=== PATIENT | male | born 1965 | race Caucasian/White ===

== ENCOUNTER 2019-11-11 14:56 | Inpatient (IN) | payer MEDICARE, OTHER ==
--- NOTE | 2019-11-11 15:15 | PDOC ---
Rapid Medical Evaluation Medical Evaluation: Allergies Allergy/AdvReac Type Severity Reaction Status Date / Time No Known Allergies Allergy Unverified 11/05/12 16:24 11/11/19 15:08 I have performed a brief in-person evaluation of this patient. The patient presents with a chief complaint of: L thigh pain s/p fall yesterday when leg gave out per pt. H/o ALS, mostly wheelchair bound but states he can bear weight minimally and was standing up when he fell yesterday. Able to bear weight on L side today. Denies any other injuries. Pertinent physical exam findings:Currently sitting in wheelchair, in NAD I have ordered the following:nothing The patient will proceed to the ED for further evaluation. Discharge Disposition - Diagnosis Thigh injury Qualifiers: Encounter type: initial encounter Laterality: left Qualified Code(s): S79.922A - Unspecified injury of left thigh, initial encounter - Referrals - Patient Instructions - Post Discharge Activity
--- NOTE | 2019-11-11 19:40 | PDOC ---
Documentation entered by Jovanni Brown SCRIBE, acting as scribe for Charito Hidalgo DO. Charito Hidalgo DO: This documentation has been prepared by the Kevin edge Nirvannie, SCRIBE, under my direction and personally reviewed by me in its entirety. I confirm that the documentation accurately reflects all work, treatment, procedures, and medical decision making performed by me. Attending Attestation - Resident Resident Name: DenisRhett - ED Attending Attestation I have performed the following: I have examined & evaluated the patient, The case was reviewed & discussed with the resident, I agree w/resident's findings & plan, Exceptions are as noted - HPI HPI: 11/11/19 19:43 The patient is a 54 year old male, with a significant past medical history of ALS (wheelchair bound since 07/13) and depression, who presents to the emergency department s/p fall with left thigh pain. As per patient, he fell yesterday while being transported from his wheelchair to the car at which time he fell between. Patient lived with his 80 year old mother in a 3 floor walk up and 2 months ago moved in with his sister where there are multiple stairs to walk up. He notes he has been only capable to get in and out of the residences being carried and with significant assistance. Patient notes calling his social service coordinator who has been attempting to get him into the [facility] ([place], [place]) with difficulty secondary to lack of beds. He states his social service coordinator advised him to report to the ED for admission and placement. He denies any recent fevers, chills, headache or dizziness. He denies any recent nausea, vomiting, diarrhea or constipation. He denies any recent chest pain or shortness of breath. He denies any recent dysuria, frequency, urgency or hematuria. Allergies: NKDA Clinical Documentation Consultant: Anju Pierce: [phone] - Physicial Exam PE: 11/11/19 20:43 Constitutional: Awake, alert, oriented. No acute distress. Head: Normocephalic. Atraumatic Eyes: PERRL. EOMI. Conjunctivae are not pale. ENT: Mucous membranes are moist and intact. Posterior pharynx without exudates or erythema. Uvula midline. Neck: Supple. Full ROM. No lymphadenopathy. Cardiovascular: Regular rate. Regular rhythm. S1, S2 regular. Distal pulses are 2+ and symmetric. Pulmonary/Chest: No evidence of respiratory distress. Clear to auscultation bilaterally No wheezing, rales or rhonchi. Abdominal: Soft and non-distended. There is no tenderness. No rebound, guarding or rigidity. No organomegaly. No palpable masses. Good bowel sounds. Back: No CVA tenderness. Musculoskeletal: +Atrophy to the LLE, no muscle tone to the LLE. +Left femur tenderness. RLE normal ROM. Skin: Skin is warm and dry. No petechiae. No purpura. Neurological: +At baseline. Alert and oriented to person, place, and time. Cranial nerves II-XII are grossly intact. Normal speech. Psychiatric: Good eye contact. Normal interaction, affect and behavior. - Medical Decision Making 11/11/19 19:35 I, Dr. Charito Hidalgo, DO, attest that this document has been prepared under my direction and personally reviewed by me in its entirety. I further attest, that it accurately reflects all work, treatment, procedures and medical decision -making performed by me. a/p:54yo male with ALS, wheelchair, cane, walker and LLE atrophy and muscle loss and fall yesterday -lived in a 3 story walk up, then moved to his sisters house where she has stairs to get into the house -fall yesterday and hit his L thigh -pt states he has been crawling to get into the house and up the stairs or friends have had to carry him -trying to get into [facility] but no beds available so his social service coordinator from [facility] told him to come to the ER and get admitted and placed pending bed availability at the [facility] -will xray leg, percocet for pain -will discuss with KASSY for inability to ambulate, unsafe discharge, placement 11/11/19 20:04 case discussed with KASSY who accepts pt to service Discharge - Discharge Information Problems reviewed: Yes Clinical Impression/Diagnosis: Unable to ambulate Thigh injury Qualifiers: Encounter type: initial encounter Laterality: left Qualified Code(s): S79.922A - Unspecified injury of left thigh, initial encounter Condition: Stable - Admission Yes - Follow up/Referral - Patient Discharge Instructions - Post Discharge Activity Heart Score/ECG Review - ECG Intrepretation Comment:: 11/11/19 20:45 sinus at 60, nl axis, nl interval, no acute st/t wave findings
--- NOTE | 2019-11-11 20:03 | PDOC ---
History of Present Illness - General Chief Complaint: Injury Stated Complaint: FALL Time Seen by Provider: 11/11/19 15:15 History Source: Patient, Family Exam Limitations: No Limitations - History of Present Illness Initial Comments: 11/11/19 19:57 PCP: None Neuro: [facility] ([phone]) ALS Staff Development Coordinator: Anju Pierce ([phone]) HPI: 54yo M with PMH ALS, substance abuse on methadone, presenting s/p mechanical fall when exiting his car, no head trauma, no LOC, mild MSK pain, presenting per request of ALS Provider who told him to get admitted for placement because he is unable to return to his 3rd floor walkup apartment. Patient has been requiring friends / family with a system of crutches to get himself up to his apartment. He felt unsafe doing this and went to his sister's apartment for awhile but is unable to traverse her stairs / driveway in the current ice and snow. After his fall yesterday, they attempted to place him at [facility] but did not have a bed and she was told to present to the ED for admission and placement. All: NKDA Meds: per chart PMH: ALS PSH: Denies Past History - Travel Traveled outside of the country in the last 30 days: No Close contact w/someone who was outside of country & ill: No - Past Medical History Allergies/Adverse Reactions: Allergies Allergy/AdvReac Type Severity Reaction Status Date / Time No Known Allergies Allergy Verified 11/11/19 15:12 Home Medications: Ambulatory Orders Citalopram Hydrobromide [Citalopram HBr] 20 mg PO DAILY 11/11/19 Methadone [Dolophine -] 60 mg PO DAILY 11/11/19 Riluzole 50 mg PO DAILY 11/11/19 COPD: Yes Other medical history: ALS - METHADONE PROGRAM - Immunization History Immunization Up to Date: Yes - Psycho Social/Smoking Cessation Hx Smoking History: Current every day smoker Number of Cigarettes Smoked Daily: 20 Information on smoking cessation initiated: No Review of Systems - Review of Systems Able to Perform ROS?: Yes Is the patient limited Haitian proficient: Yes Constitutional: No: Chills, Fever, Weakness HEENTM: No: Recent change in vision, Nose Congestion, Throat Pain, Mouth Pain Respiratory: No: Cough, Shortness of Breath, Wheezing Cardiac (ROS): No: Chest Pain, Edema, Irregular Heart Rate, Palpitations, Chest Tightness ABD/GI: No: Constipated, Diarrhea, Nausea, Vomiting : No: Burning, Dysuria, Discharge, Frequency Musculoskeletal: No: Back Pain, Joint Pain Integumentary: No: Bruising, Pruritus, Rash Neurological: No: Headache, Numbness, Tingling, Weakness Hematologic/Lymphatic: No: Anemia, Blood Clots, Easy Bleeding All Other Systems: Reviewed and Negative *Physical Exam - Vital Signs Last Vital Signs Temp Pulse Resp BP Pulse Ox 97.8 F 85 18 147/78 97 11/11/19 15:12 11/11/19 15:12 11/11/19 15:12 11/11/19 15:12 11/11/19 15:12 - Physical Exam 11/11/19 20:04 AFVSS WDWN man, appears stated age, no acute distress MMM, EOMI, NCAT RRR, nl s1s2, no murmurs CTABL, normal WOB, no wheezes / rales / rhonchi Soft, nontender, nondistended WWP, MSK wasting b/l LE, normal ROM, weakness throughout more pronounced in LE CN grossly intact 2+ radial pulses Medical Decision Making - Medical Decision Making 11/11/19 20:30 54yo M with PMH ALS, substance abuse on methadone, presenting with progressive ALS associated weakness and muscle atrophy presenting for placement. LLE muscle atrophy, s/p mechanical fall yesterday while transferring between car and wheelchair, newly non-ambulatory. - EKbpm, NSR, normal axis, normal intervals, no ischemic changes, normal EKG - Social admit for placement in setting of unsafe disposition of effectively non -ambulatory man to 3 floor walk-up. Dispo: Med/Surg Discharge - Discharge Information Problems reviewed: Yes Clinical Impression/Diagnosis: Unable to ambulate Thigh injury Qualifiers: Encounter type: initial encounter Laterality: left Qualified Code(s): S79.922A - Unspecified injury of left thigh, initial encounter Condition: Stable - Admission Yes - Follow up/Referral - Patient Discharge Instructions - Post Discharge Activity
--- NOTE | 2019-11-11 20:08 | PN ---
Teaching Attending Note Name of Resident: Jagruti Mcdaniels ATTENDING PHYSICIAN STATEMENT I saw and evaluated the patient. I reviewed the resident's note and discussed the case with the resident. I agree with the resident's findings and plan as documented. SUBJECTIVE: Patient is a 54 year old man with a PMH of ALS (wheelchair bound since 07/13), Tobacco use and Depression, who presents to the ER after a fall with left thigh pain. Says he fell yesterday while being transported from his wheelchair to the car. Patient lived with his 80 year old mother in a 3 floor walk up and 2 months ago moved in with his sister where there are multiple stairs to walk up. He notes he has been only capable to get in and out of the residences being carried and with significant assistance. Patient notes calling his social services technician who has been attempting to get him into the [facility] ([place], [place]) with difficulty secondary to lack of beds. He states his social services technician advised him to report to the ER for admission and placement. Denies any recent fevers, chills, headache, dizziness, nausea, vomiting, diarrhea, constipation, chest pain, shortness of breath, dysuria, frequency, urgency or hematuria. No recent travel or sick contacts. Denies alcohol, tobacco or illicit drug use. OBJECTIVE: Alert Vital Signs Period Temp Pulse Resp BP Sys/Cruz Pulse Ox Last 24 Hr 97.8 F 85 18 147/78 97 HEENT: No Jaundice, eye redness or discharge, PERRLA, EOMI. Normocephalic, atraumatic. External ears are normal and hearing is grossly intact. No nasal discharge. Neck: Supple, nontender. No palpable adenopathy or thyromegaly. No JVD Chest: Good effort. Clear to auscultation and percussion. Heart: Regular. No S3, rub or murmur Abdomen: Not distended, soft, nontender and no HSM. No rebound or guarding. Normal bowel sounds. Ext: Peripheral pulses intact. No leg edema. Left thigh tenderness. Skin: Warm and dry. No petechiae, rash or ecchymosis. Neuro: Alert. Oriented x3. CN 2-12 grossly intact. Sensation grossly intact in all four extremities; left hemiparesis. Psych: Appropriate mood and affect. Good insight. No suicidal or homicidal ideation. Home Medications Medication Instructions Recorded Citalopram Hydrobromide 20 mg PO DAILY 11/11/19 [Citalopram HBr] Methadone [Dolophine -] 60 mg PO DAILY 11/11/19 Riluzole 50 mg PO DAILY 11/11/19 Laboratory Results - last 24 hr 11/12/19 11/12/19 11/12/19 00:55 04:06 04:06 WBC 8.8 RBC 4.64 Hgb 13.9 Hct 39.8 MCV 85.8 MCH 30.0 MCHC 35.0 RDW 13.4 Plt Count 232 MPV 8.2 Absolute Neuts (auto) 4.9 Neutrophils % 56.2 Lymphocytes % 29.6 Monocytes % 8.8 Eosinophils % 4.7 H Basophils % 0.7 Nucleated RBC % 0 Sodium 141 Potassium 4.8 Chloride 104 Carbon Dioxide 33 H Anion Gap 3 L BUN 9.3 Creatinine 0.6 Est GFR (CKD-EPI)AfAm 132.11 Est GFR (CKD-EPI)NonAf 113.99 Random Glucose 101 Calcium 9.0 Total Bilirubin 0.3 AST 25 ALT 36 Alkaline Phosphatase 77 Total Protein 6.7 Albumin 3.7 Urine Color [place] Urine Appearance Clear Urine pH 5.5 Ur Specific [place] 1.011 Urine Protein Negative Urine Glucose (UA) Negative Urine Ketones Negative Urine Blood Negative Urine Nitrite Negative Urine Bilirubin Negative Urine Urobilinogen 0.2 Ur Leukocyte Esterase Negative ASSESSMENT AND PLAN: 1. ALS/Inability to ambulate - No fracture on left femur xray. Debility likely related to ALS progression. EKG shows NSR with no significant ST-T wave changes. Will consult residential worker for placement, PT and Neurology. Will continue comprehensive care for all of patients comorbid conditions. 2. Tobacco Use Counseled on risks associated with tobacco use. We will provide patient all the necessary assistance to facilitate smoking cessation and prescribe Nicotine patch. 3. DVT prophylaxis - Lovenox 40 mg SQ q 24 hours. 4. Advance directives - Full code
--- NOTE | 2019-11-11 20:31 | HP ---
CHIEF COMPLAINT: worsening weakness 2/2 ALS resulting in fall PCP: [facility] HISTORY OF PRESENT ILLNESS: 54 y/o male with PMH of ALS (wheelchair bound since 07/13) and depression presenting to ED s/p fall with mild left thigh discomfort on palpation. As per patient and partner, he fell yesterday while being transported from his wheelchair to the car as his legs gave out. He denies any LOC, chest pain,SOB or palpitatins prior to the fall. Patient lived with his 80 year old mother in a 3 floor walk up and 2 months ago moved in with his sister where there are multiple stairs to walk up. He notes he has been only capable to get in and out of the residences by being carried and with significant assistance. Patient report to being in contact with his social media marketing analyst consistently in hopes that he receives a bed in the [facility] (a home for pts with ALS). He states his social media marketing analyst advised him to report to the ED for admission and placement. He further denies any recent fevers, chills, headache or dizziness. He denies any recent nausea, vomiting, changes in urination or bowel movement Site Head: Anju Pierce: [phone] ER course was notable for: (1) ekg NSR no st changes (2) xray no evidence of fracture (3)cbc and cmp are unremarkable, UA negative Recent Travel:none PAST MEDICAL HISTORY: as above PAST SURGICAL HISTORY: none Family HISTORY: non contributory Social History: Smoking: active smoker 1PPD Alcohol:denies Drugs: denies Allergies No Known Allergies Allergy (Verified 11/11/19 15:12) HOME MEDICATIONS: Home Medications Medication Instructions Recorded Citalopram Hydrobromide 20 mg PO DAILY 11/11/19 [Citalopram HBr] Methadone [Dolophine -] 60 mg PO DAILY 11/11/19 Riluzole 50 mg PO DAILY 11/11/19 REVIEW OF SYSTEMS CONSTITUTIONAL: Absent: fever, chills, diaphoresis, generalized weakness, malaise, loss of appetite, weight change HEENT: Absent: rhinorrhea, nasal congestion, throat pain, throat swelling, difficulty swallowing, mouth swelling, ear pain, eye pain, visual changes CARDIOVASCULAR: Absent: chest pain, syncope, palpitations, irregular heart rate, lightheadedness , peripheral edema RESPIRATORY: Absent: cough, shortness of breath, dyspnea with exertion, orthopnea, wheezing, stridor, hemoptysis GASTROINTESTINAL: Absent: abdominal pain, abdominal distension, nausea, vomiting, diarrhea, constipation, melena, hematochezia GENITOURINARY: Absent: dysuria, frequency, urgency, hesitancy, hematuria, flank pain, genital pain MUSCULOSKELETAL: Absent: myalgia, arthralgia, joint swelling, back pain, neck pain SKIN: Absent: rash, itching, pallor HEMATOLOGIC/IMMUNOLOGIC: Absent: easy bleeding, easy bruising, lymphadenopathy, frequent infections ENDOCRINE: Absent: unexplained weight gain, unexplained weight loss, heat intolerance, cold intolerance NEUROLOGIC: focal weakness Absent: headache, paresthesias, dizziness, unsteady gait, seizure, mental status changes, bladder or bowel incontinence PSYCHIATRIC: Absent: anxiety, depression, suicidal or homicidal ideation, hallucinations. PHYSICAL EXAMINATION Vital Signs - 24 hr 11/11/19 15:12 Temperature 97.8 F Pulse Rate 85 Respiratory 18 Rate Blood Pressure 147/78 O2 Sat by Pulse 97 Oximetry (%) GENERAL: Awake, alert, and fully oriented, in no acute distress. HEAD: Normal with no signs of trauma. EYES: Pupils equal, round and reactive to light, extraocular movements intact, sclera anicteric, conjunctiva clear. No lid lag. EARS, NOSE, THROAT: oropharynx clear without exudates. Moist mucous membranes. NECK: Normal range of motion, supple without lymphadenopathy, JVD, or masses. LUNGS: Breath sounds equal, clear to auscultation bilaterally. No wheezes, and no crackles. No accessory muscle use. HEART: Regular rate and rhythm, normal S1 and S2 without murmur, rub or gallop. ABDOMEN: Soft, nontender, not distended, normoactive bowel sounds, no guarding, no rebound, no masses. No hepatomegaly or splenomegaly. MUSCULOSKELETAL: Normal range of motion at all joints. No bony deformities with tenderness over the left femur. No CVA tenderness. UPPER EXTREMITIES: 2+ pulses, warm, well-perfused. No cyanosis. No clubbing. No peripheral edema. LOWER EXTREMITIES: 2+ pulses, warm, well-perfused. No calf tenderness. No peripheral edema. NEUROLOGICAL: Cranial nerves II-XII intact without fasiculations. Sensation intact globally. No dysmetria or dysdiadochokinesia. Normal speech. Muscle strength 5/5 on the right side with 3/5 in the left UE and 1-2/5 in the left LE. PSYCHIATRIC: Cooperative. Good eye contact. Appropriate mood and affect. SKIN: Warm, dry, normal turgor, no rashes or lesions noted, normal capillary refill. ASSESSMENT/PLAN: 54 y/o male with PMH of ALS (wheelchair bound since 07/13) and depression presenting to ED s/p fall with mild left thigh pain on palpation. admitted for unsafe discharge and need for placement and r/o fracture from fall. Fall with thigh pain 2/2 worsening weakness from progressing ALS /inability to ambulate f/u Xray of the femur results pain control for thigh pain pt is requiring signicant assistance for ambulation. fall precautions PT ordered Day team- please get in touch with social work in terms of finding placement ALS cont riluzole cont methadone 60mg for pain control ( pt gets it at [facility]) Depression cont citalopram DVT lovenox daily Dispo med-surge Visit type - Emergency Visit Emergency Visit: Yes ED Registration Date: 11/11/19 Care time: The patient presented to the Emergency Department on the above date and was hospitalized for further evaluation of their emergent condition. - New Patient This patient is new to me today: No - Critical Care Critical Care patient: No ATTENDING PHYSICIAN STATEMENT I saw and evaluated the patient. I reviewed the resident's note and discussed the case with the resident. I agree with the resident's findings and plan as documented. SUBJECTIVE: OBJECTIVE: ASSESSMENT AND PLAN:
[2019-11-12 01:45] LABS: PH,URINE 5.5 (5.0-8.0); URINE APPEARANCE CLEAR; URINE BILIRUBIN NEGATIVE (NEGATIVE); URINE COLOR ORANGE; URINE GLUCOSE (UA) NEGATIVE (NEGATIVE); URINE KETONE NEGATIVE (NEGATIVE); URINE LEUK ESTERASE NEGATIVE (NEGATIVE); URINE NITRITE NEGATIVE (NEGATIVE); URINE PROTEIN NEGATIVE (NEGATIVE); URINE UROBILINOGEN 0.2 mg/dL (0.2-1.0)
[2019-11-12 04:43] LABS: BASO % 0.7 % (0-2.0); EOS % 4.7 % (0-4.5); HEMATOCRIT 39.8 % (35.4-49); HEMOGLOBIN 13.9 GM/dL (11.7-16.9); LYMPH % 29.6 % (8-40); MEAN CELL VOLUME 85.8 fl (80-96); MEAN PLT VOLUME 8.2 fl (7.5-11.1); MONO % 8.8 % (3.8-10.2); NEUT % 56.2 % (42.8-82.8); PLATELET COUNT 232 K/MM3 (134-434); RBC 4.64 M/mm3 (4.00-5.60); RDW 13.4 % (11.9-15.9); WHITE BLOOD COUNT 8.8 K/mm3 (4.0-10.0)
[2019-11-12 05:00] LABS: ALBUMIN 3.7 g/dl (3.4-5.0); BILIRUBIN,TOTAL 0.3 mg/dL (0.2-1); BLOOD UREA NITROGEN 9.3 mg/dL (7-18); CREATININE 0.6 mg/dL (0.55-1.3); POTASSIUM 4.8 mmol/L (3.5-5.1); TOT PROT 6.7 g/dl (6.4-8.2)
[2019-11-12 07:42] LABS: MAGNESIUM 2.1 mg/dL (1.8-2.4); PHOSPHOROUS 3.7 mg/dL (2.5-4.9)
[2019-11-12] MEDS: ENOXAPARIN NA (PORCINE) 40 MG/0.4 ML DISP.SYRIN SQ SCH (09:08)
[2019-11-12] MEDS ORDERED: METHADONE HCL 40 MG DISPERSABLE TABLET PO SCH (11:45)
[2019-11-12] MEDS ORDERED: METHADONE HCL 40 MG DISPERSABLE TABLET ONE (11:48)
[2019-11-12] MEDS ORDERED: METHADONE HCL 10 MG TABLET ONE (11:48)
[2019-11-12] MEDS: METHADONE 40 MG, METHADONE 20 MG PO SCH (11:52)
--- NOTE | 2019-11-12 11:57 | EKG ---
Test Reason : Blood Pressure : / mmHG Vent. Rate : 060 BPM Atrial Rate : 060 BPM P-R Int : 140 ms QRS Dur : 088 ms QT Int : 410 ms P-R-T Axes : 067 029 036 degrees QTc Int : 410 ms NORMAL SINUS RHYTHM NORMAL ECG NO PREVIOUS ECGS AVAILABLE Confirmed by ALBINA WARNER MD ([id number]) on 11/12/2019 11:57:36 AM Referred By: Confirmed By:ALBINA WARNER MD
--- NOTE | 2019-11-12 13:45 | PN ---
Physical Exam: SUBJECTIVE: Patient seen and examined. Patient states he was using Heroin until three months ago, denies any IV use. He states he stopped using heroin and is now only on Methadone. He denies other drug use. He was able to walk with a cane up until last year. His ALS is progressing. He would like to go to [facility] specifically because they have staff trained for ALS care. OBJECTIVE: Vital Signs Period Temp Pulse Resp BP Sys/Cruz Pulse Ox Last 24 Hr 97.8 F-98.2 F 72-85 16-19 113-147/65-88 96-97 GENERAL: The patient is awake, alert, and fully oriented, in no acute distress. HEAD: Normal with no signs of trauma. EYES: EOMI, PERRL ENT: Moist mucous membranes NECK: Trachea midline, full range of motion, supple. LUNGS: Breath sounds equal, clear to auscultation bilaterally, no wheezes, no crackles, no accessory muscle use. HEART: RRR, S1 S2 normal, no murmur noted ABDOMEN: Soft, nontender, nondistended, normoactive bowel sounds, no guarding EXTREMITIES: 2+ pulses, warm, well-perfused, no edema. NEUROLOGICAL: Normal speech. Sensation intact throughout. RUE muscle strength 5/ 5, LUE muscle strength 4/5. Patient able to move right hip and knee with good ROM. ROM of left hip decreased as patient is unable to move it, unable to move LLE at level of knee. PSYCH: appropriate mood and affect SKIN: Warm, dry Laboratory Results - last 24 hr 11/12/19 11/12/19 11/12/19 00:55 04:06 04:06 WBC 8.8 RBC 4.64 Hgb 13.9 Hct 39.8 MCV 85.8 MCH 30.0 MCHC 35.0 RDW 13.4 Plt Count 232 MPV 8.2 Absolute Neuts (auto) 4.9 Neutrophils % 56.2 Lymphocytes % 29.6 Monocytes % 8.8 Eosinophils % 4.7 H Basophils % 0.7 Nucleated RBC % 0 Sodium 141 Potassium 4.8 Chloride 104 Carbon Dioxide 33 H Anion Gap 3 L BUN 9.3 Creatinine 0.6 Est GFR (CKD-EPI)AfAm 132.11 Est GFR (CKD-EPI)NonAf 113.99 Random Glucose 101 Calcium 9.0 Phosphorus Magnesium Total Bilirubin 0.3 AST 25 ALT 36 Alkaline Phosphatase 77 Total Protein 6.7 Albumin 3.7 Vitamin B12 Serum Folate Urine Color [place] Urine Appearance Clear Urine pH 5.5 Ur Specific [place] 1.011 Urine Protein Negative Urine Glucose (UA) Negative Urine Ketones Negative Urine Blood Negative Urine Nitrite Negative Urine Bilirubin Negative Urine Urobilinogen 0.2 Ur Leukocyte Esterase Negative 11/12/19 11/12/19 06:20 06:20 WBC RBC Hgb Hct MCV MCH MCHC RDW Plt Count MPV Absolute Neuts (auto) Neutrophils % Lymphocytes % Monocytes % Eosinophils % Basophils % Nucleated RBC % Sodium Potassium Chloride Carbon Dioxide Anion Gap BUN Creatinine Est GFR (CKD-EPI)AfAm Est GFR (CKD-EPI)NonAf Random Glucose Calcium Phosphorus 3.7 Magnesium 2.1 Total Bilirubin AST ALT Alkaline Phosphatase Total Protein Albumin Vitamin B12 999 H Serum Folate 14 Urine Color Urine Appearance Urine pH Ur Specific [place] Urine Protein Urine Glucose (UA) Urine Ketones Urine Blood Urine Nitrite Urine Bilirubin Urine Urobilinogen Ur Leukocyte Esterase Active Medications Generic Name Dose Route Start Last Admin Trade Name Freq PRN Reason Stop Dose Admin Citalopram Hydrobromide 20 mg 11/13/19 10:00 Celexa - PO DAILY [facility] Enoxaparin Sodium 40 mg 11/12/19 10:00 11/12/19 09:08 Lovenox - SQ 40 mg DAILY [facility] Administration Methadone HCl 40 mg/ Methadone 60 mg 11/12/19 11:45 11/12/19 11:52 HCl 20 mg PO 60 mg DAILY@0600 [facility] Administration ASSESSMENT/PLAN: 54 y/o/m with PMH of ALS (wheelchair bound since 07/13) and depression presenting to ED s/p fall with mild left thigh pain on palpation. Patient admitted for unsafe discharge and need for placement. #Left thigh pain 2/2 mechanical fall 2/2 worsening weakness from progressive ALS - Femur Xray - no sign of fracture or subluxation and no sign of blastic or lytic changes - pain control as needed, can give Tylenol - PT eval - Patient will need placement on discharge as he is unable to ambulate on his own - fall precautions - patient requesting placement in [place] home #ALS - Patient has not picked up his Riluzole medication since spring of this year #Depression - Continue Citalopram #Prophylaxis - Lovenox #FEN - regular diet - monitor and replete lytes as needed #Disposition - admitted to med surg floors - will need placement on discharge Visit type - Emergency Visit Emergency Visit: Yes ED Registration Date: 11/11/19 Care time: The patient presented to the Emergency Department on the above date and was hospitalized for further evaluation of their emergent condition. - New Patient This patient is new to me today: No - Critical Care Critical Care patient: No ATTENDING PHYSICIAN STATEMENT I saw and evaluated the patient. I reviewed the resident's note and discussed the case with the resident. I agree with the resident's findings and plan as documented. SUBJECTIVE: OBJECTIVE: ASSESSMENT AND PLAN:
--- NOTE | 2019-11-12 17:09 | PN ---
Teaching Attending Note Name of Resident: Winston Sofia ATTENDING PHYSICIAN STATEMENT I saw and evaluated the patient. I reviewed the resident's note and discussed the case with the resident. I agree with the resident's findings and plan as documented. SUBJECTIVE: Feels well. Reports worsening LE weakness. No bladder/bowel dysfunction. No CP/palps/dyspnea. No fever/chills. OBJECTIVE: Afebrile, Hemodynamically Stable. Last Vital Signs Temp Pulse Resp BP Pulse Ox 98.3 F 76 15 125/76 97 11/12/19 16:59 11/12/19 16:59 11/12/19 16:59 11/12/19 16:59 11/12/19 07:23 HEENT - Atraumatic, normocephalic. Heart - S1, S2, RRR Lungs - clear to auscultation Abdomen - Soft, non-tender. Bowel Sounds normal. Extremities - mild edema, no calf tenderness. Neuro - AAO x 3. Lower Extremity weakness L>R. Laboratory Results - last 24 hr 11/12/19 11/12/19 11/12/19 00:55 04:06 04:06 WBC 8.8 RBC 4.64 Hgb 13.9 Hct 39.8 MCV 85.8 MCH 30.0 MCHC 35.0 RDW 13.4 Plt Count 232 MPV 8.2 Absolute Neuts (auto) 4.9 Neutrophils % 56.2 Lymphocytes % 29.6 Monocytes % 8.8 Eosinophils % 4.7 H Basophils % 0.7 Nucleated RBC % 0 Sodium 141 Potassium 4.8 Chloride 104 Carbon Dioxide 33 H Anion Gap 3 L BUN 9.3 Creatinine 0.6 Est GFR (CKD-EPI)AfAm 132.11 Est GFR (CKD-EPI)NonAf 113.99 Random Glucose 101 Calcium 9.0 Phosphorus Magnesium Total Bilirubin 0.3 AST 25 ALT 36 Alkaline Phosphatase 77 Total Protein 6.7 Albumin 3.7 Vitamin B12 Serum Folate Urine Color [place] Urine Appearance Clear Urine pH 5.5 Ur Specific [place] 1.011 Urine Protein Negative Urine Glucose (UA) Negative Urine Ketones Negative Urine Blood Negative Urine Nitrite Negative Urine Bilirubin Negative Urine Urobilinogen 0.2 Ur Leukocyte Esterase Negative 11/12/19 11/12/19 06:20 06:20 WBC RBC Hgb Hct MCV MCH MCHC RDW Plt Count MPV Absolute Neuts (auto) Neutrophils % Lymphocytes % Monocytes % Eosinophils % Basophils % Nucleated RBC % Sodium Potassium Chloride Carbon Dioxide Anion Gap BUN Creatinine Est GFR (CKD-EPI)AfAm Est GFR (CKD-EPI)NonAf Random Glucose Calcium Phosphorus 3.7 Magnesium 2.1 Total Bilirubin AST ALT Alkaline Phosphatase Total Protein Albumin Vitamin B12 999 H Serum Folate 14 Urine Color Urine Appearance Urine pH Ur Specific [place] Urine Protein Urine Glucose (UA) Urine Ketones Urine Blood Urine Nitrite Urine Bilirubin Urine Urobilinogen Ur Leukocyte Esterase Current Medications Generic Name Dose Route Start Last Admin Trade Name Rashmi PRN Reason Stop Dose Admin Citalopram Hydrobromide 20 mg 11/13/19 10:00 Celexa - PO DAILY [facility] Enoxaparin Sodium 40 mg 11/12/19 10:00 11/12/19 09:08 Lovenox - SQ 40 mg DAILY [facility] Administration Methadone HCl 40 mg/ Methadone 60 mg 11/12/19 11:45 11/12/19 11:52 HCl 20 mg PO 60 mg DAILY@0600 [facility] Administration Home Medications Medication Instructions Recorded Citalopram Hydrobromide 20 mg PO DAILY 11/11/19 [Citalopram HBr] Methadone [Dolophine -] 60 mg PO DAILY 11/11/19 ASSESSMENT AND PLAN: 54 year old male with ALS (wheelchair bound since 07/13), 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 1. Progressive ALS/Ambulatory Dysfunction/Functional Paraplegia L Femur Xray negative. PT/Social Work for placement Will consult Palliative Care 2. Ex-Substance Abuse - on Methadone. 3. Smoker. counseled, offered nicotine patch. 4. Depression - continue Citalopram. DVT Prophylaxis - Lovenox SQ FULL CODE
[2019-11-12 18:46] VITALS: BMI 24.6
[2019-11-12] MEDS ORDERED: ACETAMINOPHEN 500 MG TABLET (FP) PO ONE (19:04)
[2019-11-12] MEDS ORDERED: FLU VACCINE QUAD 60 MCG/0.5 ML (MDV 19-20) IM ONE (19:15)
[2019-11-13] MEDS ORDERED: METHADONE HCL 40 MG DISPERSABLE TABLET ONE (05:50)
[2019-11-13] MEDS ORDERED: METHADONE HCL 10 MG TABLET ONE (05:50)
[2019-11-13] MEDS: METHADONE 40 MG, METHADONE 20 MG PO SCH (05:56)
[2019-11-13 08:46] LABS: BLOOD UREA NITROGEN 8.6 mg/dL (7-18); CALCIUM 9.1 mg/dL (8.5-10.1); CREATININE 0.5 mg/dL (0.55-1.3); POTASSIUM 4.1 mmol/L (3.5-5.1)
[2019-11-13] MEDS: CITALOPRAM HYDROBROMIDE 20 MG TABLET (FP) PO SCH (10:30)
[2019-11-13] MEDS: ENOXAPARIN NA (PORCINE) 40 MG/0.4 ML DISP.SYRIN SQ SCH (10:30)
[2019-11-13] MEDS ORDERED: FLU VACCINE QUAD 60 MCG/0.5 ML (MDV 19-20) IM ONE (12:30)
--- NOTE | 2019-11-13 13:51 | PN ---
Physical Exam: SUBJECTIVE: Patient seen and examined. No acute events overnight. Patient states he would like to stop taking Methadone so that he can go to his preferred fpc. Explained to patient that stopping Methadone abruptly would not be safe for him. OBJECTIVE: Vital Signs Period Temp Pulse Resp BP Sys/Cruz Pulse Ox Last 24 Hr 98.3 F-98.9 F 66-78 15-20 112-125/64-76 95-95 GENERAL: The patient is awake, alert, and fully oriented, in no acute distress HEAD: Normal with no signs of trauma. EYES: EOMI, no scleral activity ENT: Moist mucous membranes NECK: Trachea midline, supple. LUNGS: Breath sounds equal, clear to auscultation bilaterally, no wheezes, no crackles, no accessory muscle use. HEART: RRR, S1 S2 normal, no murmur noted ABDOMEN: Soft, nontender, nondistended, normoactive bowel sounds, no guarding EXTREMITIES: 2+ pulses, warm, well-perfused, no edema. NEUROLOGICAL: Normal speech. Sensation intact throughout. RUE muscle strength 5/ 5, LUE muscle strength 4/5. 4/5 strength at right hip and 3/5 strength right knee. 2/5 strength at left hip and knee. PSYCH: appropriate mood and affect SKIN: Warm, dry Laboratory Results - last 24 hr 11/13/19 06:00 Sodium 139 Potassium 4.1 Chloride 104 Carbon Dioxide 28 Anion Gap 7 L BUN 8.6 Creatinine 0.5 L Est GFR (CKD-EPI)AfAm 142.39 Est GFR (CKD-EPI)NonAf 122.86 Random Glucose 93 Calcium 9.1 Active Medications Generic Name Dose Route Start Last Admin Trade Name Freq PRN Reason Stop Dose Admin Citalopram Hydrobromide 20 mg 11/13/19 10:00 11/13/19 10:30 Celexa - PO Not Given DAILY [facility] Enoxaparin Sodium 40 mg 11/12/19 10:00 11/13/19 10:30 Lovenox - SQ Not Given DAILY [facility] Methadone HCl 40 mg/ Methadone 60 mg 11/12/19 11:45 11/13/19 05:56 HCl 20 mg PO 60 mg DAILY@0600 [facility] Administration ASSESSMENT/PLAN: 54 y/o/m with PMH of ALS (wheelchair bound since 07/13) and depression presenting to ED s/p fall with mild left thigh pain on palpation. Patient admitted for unsafe discharge and need for placement. #Left thigh pain 2/2 mechanical fall 2/2 worsening weakness from progressive ALS - Femur Xray - no sign of fracture or subluxation and no sign of blastic or lytic changes - pain control as needed, can give Tylenol - PT eval - Patient will need placement on discharge as he is unable to ambulate on his own - fall precautions - patient requesting placement in [facility] - Would like to stop taking methadone so that he can have placement at preferred fpc. - Consult placed for addiction medicine. Recs appreciated - advised to reach out to methadone clinic in regards to tapering Methadone. Can start painkiller in parallel with Methadon but advised it would not be safe to discontinue Methadone immediately. #ALS - Patient has not picked up his Riluzole medication since spring of this year #Depression - Continue Citalopram #Prophylaxis - Lovenox #FEN - regular diet - monitor and replete lytes as needed #Disposition - admitted to [facility] floors - will need placement on discharge Visit type - Emergency Visit Emergency Visit: Yes ED Registration Date: 11/11/19 Care time: The patient presented to the Emergency Department on the above date and was hospitalized for further evaluation of their emergent condition. - New Patient This patient is new to me today: No - Critical Care Critical Care patient: No ATTENDING PHYSICIAN STATEMENT I saw and evaluated the patient. I reviewed the resident's note and discussed the case with the resident. I agree with the resident's findings and plan as documented. SUBJECTIVE: OBJECTIVE: ASSESSMENT AND PLAN:
--- NOTE | 2019-11-13 14:18 | PN ---
Teaching Attending Note Name of Resident: Winston Sofia ATTENDING PHYSICIAN STATEMENT I saw and evaluated the patient. I reviewed the resident's note and discussed the case with the resident. I agree with the resident's findings and plan as documented. SUBJECTIVE: Feels well. LE weakness L > R. No bladder/bowel dysfunction. No CP/ palps/dyspnea. No fever/chills. OBJECTIVE: Afebrile, Hemodynamically Stable. Last Vital Signs Temp Pulse Resp BP Pulse Ox 98.6 F 66 20 112/69 95 11/13/19 10:07 11/13/19 10:07 11/13/19 10:07 11/13/19 10:07 11/12/19 21:00 Heart - S1, S2, RRR Lungs - clear to auscultation Abdomen - Soft, non-tender. Bowel Sounds normal. Extremities - mild edema, no calf tenderness. Neuro - AAO x 3. Lower Extremity weakness L>R. Laboratory Results - last 24 hr 11/13/19 06:00 Sodium 139 Potassium 4.1 Chloride 104 Carbon Dioxide 28 Anion Gap 7 L BUN 8.6 Creatinine 0.5 L Est GFR (CKD-EPI)AfAm 142.39 Est GFR (CKD-EPI)NonAf 122.86 Random Glucose 93 Calcium 9.1 Current Medications Generic Name Dose Route Start Last Admin Trade Name Yarielq PRN Reason Stop Dose Admin Citalopram Hydrobromide 20 mg 11/13/19 10:00 11/13/19 10:30 Celexa - PO Not Given DAILY [facility] Enoxaparin Sodium 40 mg 11/12/19 10:00 11/13/19 10:30 Lovenox - SQ Not Given DAILY [facility] Methadone HCl 40 mg/ Methadone 60 mg 11/12/19 11:45 11/13/19 05:56 HCl 20 mg PO 60 mg DAILY@0600 [facility] Administration Home Medications Medication Instructions Recorded Citalopram Hydrobromide 20 mg PO DAILY 11/11/19 [Citalopram HBr] Methadone [Dolophine -] 60 mg PO DAILY 11/11/19 ASSESSMENT AND PLAN: 54 year old male with ALS (wheelchair bound since 07/13), 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 1. Progressive ALS/Ambulatory Dysfunction/Functional Paraplegia L Femur Xray negative. PT/Social Work for placement/Palliative Care 2. Ex-Substance Abuse - on Methadone. Wants to transition off Methadone as several facilities do not facilitate methadone use. Will discuss with pain management/Addiction medicine. 3. Smoker. counseled, offered nicotine patch. 4. Depression - continue Citalopram. DVT Prophylaxis - Lovenox SQ FULL CODE
[2019-11-13] MEDS ORDERED: METHADONE HCL 40 MG DISPERSABLE TABLET PO SCH (17:24)
[2019-11-14] MEDS ORDERED: METHADONE 40 MG, METHADONE 10 MG PO SCH (06:00)
--- NOTE | 2019-11-14 10:14 | CONSULT ---
Consult Detox [facility] Reason for Current Admission/Consult: Patient wants to transfer to other program due to his ALS and methadone program unable to accomodate his issues. Referred by:: balbina duarte - History History of Present Illness: 54 y/o male with PMH of ALS (wheelchair bound since 07/13) and depression presenting to ED s/p fall with mild left thigh discomfort on palpation. As per patient and partner, he fell yesterday while being transported from his wheelchair to the car as his legs gave out. He denies any LOC, chest pain,SOB or palpitatins prior to the fall. Patient lived with his 80 year old mother in a 3 floor walk up and 2 months ago moved in with his sister where there are multiple stairs to walk up. He notes he has been only capable to get in and out of the residences by being carried and with significant assistance. Patient report to being in contact with his secondary social studies teacher consistently in hopes that he receives a bed in the [facility] (a home for pts with ALS). He states his secondary social studies teacher advised him to report to the ED for admission and placement. He further denies any recent fevers, chills, headache or dizziness. He denies any recent nausea, vomiting, changes in urination or bowel movement. He is a current methadone patient and thinks that program will not accomodate his needs and once he is in a longterm he will not receive his methadone. - History Source History Provided By: Medical Record Limitations to Obtaining History: No Limitations - Alcohol/Substance Use Hx Alcohol Use: Yes (ON OCCASSION/INFREQUENT) Hx Substance Use: Yes (opioids in past) Hx Substance Use Treatment: Yes (on methadone) - Significant Medical Findings: See resident's medical findings. Assessment Plan - Plan Plan: 1. Opioid Dependence: By law now all methadone programs can make arrangements with longterm to assist with dispensation of methadone. What this patient can request is that the methadone program request a CSAT permission for release of methadone to the nursing him that will then store and dispense his methadone on a daily basis if he is admitted to a longterm. If he then is stable and released from the longterm, they can accomodate him for medical reasons on a lower fruit picker schedule and all it requires is a CSAT/Federal exception request that can be requested through his methadone program. If he has problems with his current methadone provider, then he can be admitted to [facility] methadone program and we can help him with such exception requirements. Dr. Gore
[2019-11-14] MEDS ORDERED: METHADONE HCL 10 MG TABLET ONE (10:21)
[2019-11-14] MEDS ORDERED: METHADONE HCL 40 MG DISPERSABLE TABLET ONE (10:21)
[2019-11-14] MEDS: METHADONE 40 MG, METHADONE 10 MG PO SCH (10:23)
[2019-11-14] MEDS: ENOXAPARIN NA (PORCINE) 40 MG/0.4 ML DISP.SYRIN SQ SCH (10:23)
[2019-11-14] MEDS: CITALOPRAM HYDROBROMIDE 20 MG TABLET (FP) PO SCH (10:23)
--- NOTE | 2019-11-14 11:14 | PN ---
Teaching Attending Note Name of Resident: Winston Sofia ATTENDING PHYSICIAN STATEMENT I saw and evaluated the patient. I reviewed the resident's note and discussed the case with the resident. I agree with the resident's findings and plan as documented. SUBJECTIVE: Feels well. LE weakness L > R. No bladder/bowel dysfunction. No CP/ palps/dyspnea. No fever/chills. OBJECTIVE: Afebrile, Hemodynamically Stable. Last Vital Signs Temp Pulse Resp BP Pulse Ox 98.5 F 86 20 114/70 96 11/14/19 06:05 11/14/19 06:05 11/14/19 06:05 11/14/19 06:05 11/14/19 09:00 Heart - S1, S2, RRR Lungs - clear to auscultation Abdomen - Soft, non-tender. Bowel Sounds normal. Extremities - mild edema, no calf tenderness. Neuro - AAO x 3. Lower Extremity weakness L>R. Current Medications Generic Name Dose Route Start Last Admin Trade Name Freq PRN Reason Stop Dose Admin Citalopram Hydrobromide 20 mg 11/13/19 10:00 11/14/19 10:23 Celexa - PO 20 mg DAILY [facility] Administration Enoxaparin Sodium 40 mg 11/12/19 10:00 11/14/19 10:23 Lovenox - SQ Not Given DAILY [facility] Methadone HCl 40 mg/ Methadone 50 mg 11/14/19 06:00 11/14/19 10:23 HCl 10 mg PO 50 mg DAILY@0600 [facility] Administration Home Medications Medication Instructions Recorded Citalopram Hydrobromide 20 mg PO DAILY 11/11/19 [Citalopram HBr] Methadone [Dolophine -] 60 mg PO DAILY 11/11/19 Riluzole 50 mg PO DAILY 11/13/19 ASSESSMENT AND PLAN: 54 year old male with ALS (wheelchair bound since 07/13), 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 1. Progressive ALS/Ambulatory Dysfunction/Functional Paraplegia L Femur Xray negative. PT/awaiting Social Work for placement/Palliative Care consulted. Continue Riluzole. 2. Ex-Substance Abuse - on Methadone. Wants to transition off Methadone as several facilities do not facilitate methadone use. Seen by Addiction Medicine - recommend continuing Methadone. 3. Depression - continue Citalopram. DVT Prophylaxis - Lovenox SQ FULL CODE
[2019-11-14] MEDS: NICOTINE 7 MG/24 HOURS TOPICAL PATCH TD SCH (15:32)
--- NOTE | 2019-11-14 16:57 | PN ---
Physical Exam: SUBJECTIVE: Patient seen and examined. No complaints overnight. Started on a lower dose of Methadone today. Explained to patient to let nursing staff know if he has any signs of withdrawal symptoms. Denies chest pain, SOB, abd pain. OBJECTIVE: Vital Signs Period Temp Pulse Resp BP Sys/Cruz Pulse Ox Last 24 Hr 98.1 F-98.5 F 79-90 20-20 114-127/68-77 96-97 GENERAL: The patient is awake, alert, and fully oriented, in no acute distress HEAD: Normal with no signs of trauma. EYES: EOMI, no scleral activity ENT: Moist mucous membranes NECK: Trachea midline, supple. LUNGS: Breath sounds equal, clear to auscultation bilaterally, no wheezes, no crackles, no accessory muscle use. HEART: RRR, S1 S2 normal, no murmur noted ABDOMEN: Soft, nontender, nondistended, normoactive bowel sounds, no guarding EXTREMITIES: 2+ pulses, warm, well-perfused, no edema. NEUROLOGICAL: Normal speech. Sensation intact throughout. RUE muscle strength 5/ 5, LUE muscle strength 4/5. 4/5 strength at right hip and 3/5 strength right knee. 2/5 strength at left hip and knee. PSYCH: appropriate mood and affect SKIN: Warm, dry Active Medications Generic Name Dose Route Start Last Admin Trade Name Yarielq PRN Reason Stop Dose Admin Citalopram Hydrobromide 20 mg 11/13/19 10:00 11/14/19 10:23 Celexa - PO 20 mg DAILY [facility] Administration Enoxaparin Sodium 40 mg 11/12/19 10:00 11/14/19 10:23 Lovenox - SQ Not Given DAILY [facility] Methadone HCl 40 mg/ Methadone 50 mg 11/14/19 06:00 11/14/19 10:23 HCl 10 mg PO 50 mg DAILY@0600 [facility] Administration Nicotine 7 mg 11/14/19 13:45 11/14/19 15:32 Nicoderm Patch - TD Not Given DAILY [facility] Non-Formulary Medication 50 mg 11/14/19 22:00 Riluzole [Riluzole] PO BID [facility] ASSESSMENT/PLAN: 54 y/o/m with PMH of ALS (wheelchair bound since 07/13) and depression presenting to ED s/p fall with mild left thigh pain on palpation. Patient admitted for unsafe discharge and need for placement. #Left thigh pain 2/2 mechanical fall 2/2 worsening weakness from progressive ALS - Femur Xray - no sign of fracture or subluxation and no sign of blastic or lytic changes - pain control as needed, can give Tylenol - PT eval - Patient will need placement on discharge as he is unable to ambulate on his own - fall precautions - patient requesting placement in [facility] home - Would like to stop taking methadone so that he can have placement at preferred half-way. - Consult placed for addiction medicine. Recs appreciated - By law now all methadone programs can make arrangements with half-way to assist with dispensation of methadone. What this patient can request is that the methadone program request a CSAT permission for release of methadone to the nursing him that will then store and dispense his methadone on a daily basis if he is admitted to a half-way #ALS - Continue Riluzole 50mg BID #Depression - Continue Citalopram - Patient has taken Clonazepam 1mg once daily at home as needed for muscle spasm /anxiety. Will not start at this time but can give as needed. #Prophylaxis - Lovenox #FEN - regular diet - monitor and replete lytes as needed #Disposition - discharge pending placement to half-way Visit type - Emergency Visit Emergency Visit: Yes ED Registration Date: 11/11/19 Care time: The patient presented to the Emergency Department on the above date and was hospitalized for further evaluation of their emergent condition. - New Patient This patient is new to me today: No - Critical Care Critical Care patient: No ATTENDING PHYSICIAN STATEMENT I saw and evaluated the patient. I reviewed the resident's note and discussed the case with the resident. I agree with the resident's findings and plan as documented. SUBJECTIVE: OBJECTIVE: ASSESSMENT AND PLAN:
[2019-11-14] MEDS: RILUZOLE 50 MG PO SCH (23:12)
[2019-11-15] MEDS ORDERED: METHADONE HCL 40 MG DISPERSABLE TABLET ONE (05:50)
[2019-11-15] MEDS ORDERED: METHADONE HCL 10 MG TABLET ONE (05:50)
[2019-11-15] MEDS: METHADONE 40 MG, METHADONE 10 MG PO SCH (05:52)
[2019-11-15] MEDS: ENOXAPARIN NA (PORCINE) 40 MG/0.4 ML DISP.SYRIN SQ SCH (10:19)
[2019-11-15] MEDS: RILUZOLE 50 MG PO SCH ×2 (10:21→22:29)
[2019-11-15] MEDS: NICOTINE 7 MG/24 HOURS TOPICAL PATCH TD SCH (10:27)
[2019-11-15] MEDS: CITALOPRAM HYDROBROMIDE 20 MG TABLET (FP) PO SCH (10:27)
--- NOTE | 2019-11-15 15:06 | PN ---
Physical Exam: SUBJECTIVE: Patient seen and examined, no complaints. OBJECTIVE: Vital Signs Period Temp Pulse Resp BP Sys/Cruz Pulse Ox Last 24 Hr 98.5 F-98.8 F 78-92 18-20 106-122/57-75 96-97 Intake & Output 11/12/19 11/13/19 11/14/19 11/15/19 23:59 23:59 23:59 23:59 Intake Total 1180 820 200 Output Total 800 1400 950 Balance 380 -580 -950 200 Weight 176 lb 9.6 oz General: getting out of bed to commode, no acute distress Heart - S1, S2, RRR Lungs - clear to auscultation Abdomen - Soft, non-tender. Bowel Sounds normal. Extremities - mild edema, no calf tenderness. Neuro - AAO x 3. Lower Extremity weakness L>R. Active Medications Generic Name Dose Route Start Last Admin Trade Name Freq PRN Reason Stop Dose Admin Citalopram Hydrobromide 20 mg 11/13/19 10:00 11/15/19 10:27 Celexa - PO 20 mg DAILY FLASH Administration Enoxaparin Sodium 40 mg 11/12/19 10:00 11/15/19 10:19 Lovenox - SQ Not Given DAILY FLASH Methadone HCl 40 mg/ Methadone 50 mg 11/14/19 06:00 11/15/19 05:52 HCl 10 mg PO 50 mg DAILY@0600 FLASH Administration Nicotine 7 mg 11/14/19 13:45 11/15/19 10:27 Nicoderm Patch - TD 7 mg DAILY FLASH Administration Non-Formulary Medication 50 mg 11/14/19 22:00 11/15/19 10:21 Riluzole [Riluzole] PO 50 mg BID FLASH Administration ASSESSMENT/PLAN: 54 year old male with ALS (wheelchair bound since 07/13), 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 -Progressive ALS/Ambulatory Dysfunction/Functional paraplegia -Prior substance abuse, on methadone -Depression Plan: trauma w/u neg. PT eval noted, for SNF. Continue Riluzole. Addiction medicine input noted. Patient can request that the methadone program request permission for release of methadone to the nursing him that will then store and dispense his methadone on a daily basis if he is admitted to a [facility], per recs Continue citalopram DVTPPx lovenox. Dispo awaiting SNF placement. Visit type - Emergency Visit Emergency Visit: Yes ED Registration Date: 11/11/19 Care time: The patient presented to the Emergency Department on the above date and was hospitalized for further evaluation of their emergent condition. - New Patient This patient is new to me today: Yes Date on this admission: 11/15/19 - Critical Care Critical Care patient: No - Discharge Referral Referred to [facility] Med [facility].C.: No
[2019-11-16] MEDS ORDERED: METHADONE HCL 10 MG TABLET ONE (06:29)
[2019-11-16] MEDS ORDERED: METHADONE HCL 40 MG DISPERSABLE TABLET ONE (06:29)
[2019-11-16] MEDS: METHADONE 40 MG, METHADONE 10 MG PO SCH (06:32)
[2019-11-16] MEDS: CITALOPRAM HYDROBROMIDE 20 MG TABLET (FP) PO SCH (11:10)
[2019-11-16] MEDS: RILUZOLE 50 MG PO SCH ×2 (11:10→22:33)
[2019-11-16] MEDS: NICOTINE 7 MG/24 HOURS TOPICAL PATCH TD SCH (11:10)
[2019-11-16] MEDS: ENOXAPARIN NA (PORCINE) 40 MG/0.4 ML DISP.SYRIN SQ SCH (11:12)
--- NOTE | 2019-11-16 11:27 | PN ---
Teaching Attending Note Name of Resident: Winston Sofia ATTENDING PHYSICIAN STATEMENT I saw and evaluated the patient. I reviewed the resident's note and discussed the case with the resident. I agree with the resident's findings and plan as documented with exceptions below. SUBJECTIVE: Patient seen and examined. no new complaints. OBJECTIVE: Vital Signs Period Temp Pulse Resp BP Sys/Cruz Pulse Ox Last 24 Hr 97.9 F-98.8 F 75-88 18-20 103-117/58-72 97 Intake & Output 11/13/19 11/14/19 11/15/19 11/16/19 23:59 23:59 23:59 23:59 Intake Total 820 200 250 Output Total 1400 950 3 300 Balance -580 -950 197 -50 General :sitting in bed, no acute distress neck: soft, supple Chest: CTAB, no rales or wheezing Abdomen:Soft Extremities: no edema Home Medications Medication Instructions Recorded Citalopram Hydrobromide 20 mg PO DAILY 11/11/19 [Citalopram HBr] Methadone [Dolophine -] 60 mg PO DAILY 11/11/19 Riluzole 50 mg PO DAILY 11/13/19 Active Medications Citalopram Hydrobromide (Celexa -) 20 mg PO DAILY [facility] Last Admin: 11/16/19 11:10 Dose: 20 mg Enoxaparin Sodium (Lovenox -) 40 mg SQ DAILY [facility] Last Admin: 11/16/19 11:12 Dose: Not Given Methadone HCl 40 mg/ Methadone (HCl 10 mg) 50 mg PO DAILY@0600 [facility] Last Admin: 11/16/19 06:32 Dose: 50 mg Nicotine (Nicoderm Patch -) 7 mg TD DAILY [facility] Last Admin: 11/16/19 11:10 Dose: 7 mg Non-Formulary Medication (Riluzole [Riluzole]) 50 mg PO BID [facility] Last Admin: 11/16/19 11:10 Dose: 50 mg ASSESSMENT AND PLAN: 54 year old male with ALS (wheelchair bound since 07/13), 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 -Progressive ALS/Ambulatory Dysfunction/Functional paraplegia -Prior substance abuse, on methadone -Depression Plan: trauma w/u neg. PT eval noted, for SNF. Continue Riluzole. Addiction medicine input noted. Patient can request that the methadone program request permission for release of methadone to the nursing him that will then store and dispense his methadone on a daily basis if he is admitted to a long term, per recs Continue citalopram DVTPPx lovenox. Dispo awaiting SNF placement. Discussed with patient and social work.
--- NOTE | 2019-11-16 12:26 | PN ---
Physical Exam: SUBJECTIVE: Patient seen and examined. No acute events overnight. Patient without complaints. Tolerating lower dose of Methadone well. OBJECTIVE: Vital Signs Period Temp Pulse Resp BP Sys/Cruz Pulse Ox Last 24 Hr 97.9 F-98.8 F 75-88 18-20 103-117/58-72 97 GENERAL: The patient is awake, alert, and fully oriented, in no acute distress HEAD: Normal with no signs of trauma. EYES: EOMI, no scleral activity ENT: Moist mucous membranes NECK: Trachea midline, supple. LUNGS: Breath sounds equal, clear to auscultation bilaterally, no wheezes, no crackles, no accessory muscle use. HEART: RRR, S1 S2 normal, no murmur noted ABDOMEN: Soft, nontender, nondistended, normoactive bowel sounds, no guarding EXTREMITIES: 2+ pulses, warm, well-perfused, no edema. NEUROLOGICAL: Normal speech. Sensation intact throughout. RUE muscle strength 5/ 5, LUE muscle strength 4/5. 4/5 strength at right hip and 3/5 strength right knee. 2/5 strength at left hip and knee. PSYCH: appropriate mood and affect SKIN: Warm, dry Active Medications Generic Name Dose Route Start Last Admin Trade Name Freq PRN Reason Stop Dose Admin Citalopram Hydrobromide 20 mg 11/13/19 10:00 11/16/19 11:10 Celexa - PO 20 mg DAILY FLASH Administration Enoxaparin Sodium 40 mg 11/12/19 10:00 11/16/19 11:12 Lovenox - SQ Not Given DAILY FLASH Methadone HCl 40 mg/ Methadone 50 mg 11/14/19 06:00 11/16/19 06:32 HCl 10 mg PO 50 mg DAILY@0600 FLASH Administration Nicotine 7 mg 11/14/19 13:45 11/16/19 11:10 Nicoderm Patch - TD 7 mg DAILY FLASH Administration Non-Formulary Medication 50 mg 11/14/19 22:00 11/16/19 11:10 Riluzole [Riluzole] PO 50 mg BID FLASH Administration ASSESSMENT/PLAN: 54 y/o/m with PMH of ALS (wheelchair bound since 07/13) and depression presenting to ED s/p fall with mild left thigh pain on palpation. Patient admitted for unsafe discharge and need for placement. #Left thigh pain 2/2 mechanical fall 2/2 worsening weakness from progressive ALS - Femur Xray - no sign of fracture or subluxation and no sign of blastic or lytic changes - pain control as needed, can give Tylenol - PT eval - Patient will need placement on discharge as he is unable to ambulate on his own - fall precautions - patient requesting placement in [facility] - Would like to stop taking methadone so that he can have placement at [facility]. - Consult placed for addiction medicine. Recs appreciated - By law now all methadone programs can make arrangements with half-way to assist with dispensation of methadone. What this patient can request is that the methadone program request a CSAT permission for release of methadone to the nursing him that will then store and dispense his methadone on a daily basis if he is admitted to a half-way #ALS - Continue Riluzole 50mg BID #Depression - Continue Citalopram - Patient has taken Clonazepam 1mg once daily at home as needed for muscle spasm /anxiety. Will not start at this time but can give as needed. #Prophylaxis - Lovenox #FEN - regular diet #Disposition - D/C pending placement in half-way, hold up due to Methadone medication Visit type - Emergency Visit Emergency Visit: Yes ED Registration Date: 11/11/19 Care time: The patient presented to the Emergency Department on the above date and was hospitalized for further evaluation of their emergent condition. - New Patient This patient is new to me today: No - Critical Care Critical Care patient: No ATTENDING PHYSICIAN STATEMENT I saw and evaluated the patient. I reviewed the resident's note and discussed the case with the resident. I agree with the resident's findings and plan as documented. SUBJECTIVE: OBJECTIVE: ASSESSMENT AND PLAN:
[2019-11-16] MEDS ORDERED: PT OWN MED DRAWER 7, Y5N ONE (23:18)
[2019-11-17] MEDS ORDERED: METHADONE HCL 40 MG DISPERSABLE TABLET ONE (05:02)
[2019-11-17] MEDS ORDERED: METHADONE HCL 10 MG TABLET ONE (05:03)
[2019-11-17] MEDS: METHADONE 40 MG, METHADONE 10 MG PO SCH (05:10)
[2019-11-17] MEDS: CITALOPRAM HYDROBROMIDE 20 MG TABLET (FP) PO SCH (11:27)
[2019-11-17] MEDS: NICOTINE 7 MG/24 HOURS TOPICAL PATCH TD SCH (11:27)
[2019-11-17] MEDS: RILUZOLE 50 MG PO SCH ×2 (11:28→21:27)
[2019-11-17] MEDS: ENOXAPARIN NA (PORCINE) 40 MG/0.4 ML DISP.SYRIN SQ SCH (11:28)
--- NOTE | 2019-11-17 11:47 | DS ---
Physical Exam: SUBJECTIVE: Patient seen and examined. No acute events overnight. Patient without complaints. Explained to patient that we are awaiting placement in SNF. OBJECTIVE: Vital Signs Period Temp Pulse Resp BP Sys/Cruz Pulse Ox Last 24 Hr 97.8 F-98.9 F 73-89 16-18 103-125/64-81 97 PHYSICAL EXAM GENERAL: The patient is awake, alert, and fully oriented, in no acute distress HEAD: Normal with no signs of trauma. EYES: EOMI, no scleral activity ENT: Moist mucous membranes NECK: Trachea midline, supple. LUNGS: Breath sounds equal, clear to auscultation bilaterally, no wheezes, no crackles, no accessory muscle use. HEART: RRR, S1 S2 normal, no murmur noted ABDOMEN: Soft, nontender, nondistended, normoactive bowel sounds, no guarding EXTREMITIES: 2+ pulses, warm, well-perfused, no edema. NEUROLOGICAL: Normal speech. Sensation intact throughout. RUE muscle strength 5/ 5, LUE muscle strength 4/5. 4/5 strength at right hip and 3/5 strength right knee. 2/5 strength at left hip and knee. PSYCH: appropriate mood and affect SKIN: Warm, dry LABS HOSPITAL COURSE: Date of Admission:11/11/19 Date of Discharge: 11/17/19 54 y/o/m with PMH of ALS (wheelchair bound since 07/13) and depression presenting to ED s/p fall with mild left thigh pain on palpation. Patient admitted for unsafe discharge and need for placement. #Left thigh pain 2/2 mechanical fall 2/2 worsening weakness from progressive ALS - Femur Xray - no sign of fracture or subluxation and no sign of blastic or lytic changes - pain control as needed, can give Tylenol - PT eval - Patient will need placement on discharge as he is unable to ambulate on his own - fall precautions - patient requesting placement in [facility] - Would like to stop taking methadone so that he can [facility]. - Consult placed for addiction medicine. Recs appreciated - By law now all methadone programs can make arrangements with detention to assist with dispensation of methadone. What this patient can request is that the methadone program request a CSAT permission for release of methadone to the nursing him that will then store and dispense his methadone on a daily basis if he is admitted to a detention #ALS - Continue Riluzole 50mg BID #Depression - Continue Citalopram - Patient has taken Clonazepam 1mg once daily at home as needed for muscle spasm /anxiety. Will not start at this time but can give as needed. #Prophylaxis - Lovenox #FEN - regular diet #Disposition - D/C to SNF Discharge Summary Problems reviewed: Yes Reason For Visit: UNABLE TO WALK Current Active Problems Thigh injury (Acute) Unable to ambulate (Acute) Condition: Stable - Instructions Diet, Activity, Other Instructions: You presented to the hospital after a fall due to worsening weakness from your ALS. You had an x-ray of your leg done which did not show any fracture. Your home medications were continued while you were in the hospital. Medication Changes: 1. Your Methadone dose was decreased to 50mg. 2. You were started on a nicotine patch while in the hospital for your cigarette use. Follow up with the following physicians: 1. Please follow up with your primary care provider within one week of discharge. If you do not have a primary care provider you can make an appointment with the [facility], a referral is included in your discharge packet. 2. Please follow up with your methadone clinic for further management of your methadone dosing. Activity and Diet 1. You are being discharged to a nursing facility to continue rehab and help with your ALS. Continue all your other medications as prescribed Please return to the ER if you have any signs or symptoms of chest pain, shortness of breath, uncontrollable fever, chills, nausea, vomiting, numbness, tingling, or weakness in any part of your body, changes in vision, or slurred speech. Please return to the ER if symptoms persist, worsen, or new symptoms arise. Referrals: [facility] [Provider Group] Disposition: INTERMEDIATE FACILITY - Home Medications Comprehensive Discharge Medication List: Ambulatory Orders Citalopram Hydrobromide [Citalopram HBr] 20 mg PO DAILY 11/11/19 Riluzole 50 mg PO DAILY 11/13/19 Nicotine Patch [Nicoderm Patch -] 7 mg TD DAILY #30 patch 11/17/19 This patient is new to me today: No Emergency Visit: Yes ED Registration Date: 11/11/19 Care time: The patient presented to the Emergency Department on the above date and was hospitalized for further evaluation of their emergent condition. Critical Care patient: No - Discharge Referral Referred to [facility] Med [facility]C.: No ATTENDING PHYSICIAN STATEMENT I saw and evaluated the patient. I reviewed the resident's note and discussed the case with the resident. I agree with the resident's findings and plan as documented. SUBJECTIVE: OBJECTIVE: ASSESSMENT AND PLAN:
--- NOTE | 2019-11-17 15:36 | PN ---
Physical Exam: SUBJECTIVE: Patient seen and examined. No acute events overnight. Patient without complaints. Explained to patient that we are awaiting placement in SNF. OBJECTIVE: Vital Signs Period Temp Pulse Resp BP Sys/Cruz Pulse Ox Last 24 Hr 97.8 F-98.4 F 73-85 18-18 103-125/64-81 97 GENERAL: The patient is awake, alert, and fully oriented, in no acute distress HEAD: Normal with no signs of trauma. EYES: EOMI, no scleral activity ENT: Moist mucous membranes NECK: Trachea midline, supple. LUNGS: Breath sounds equal, clear to auscultation bilaterally, no wheezes, no crackles, no accessory muscle use. HEART: RRR, S1 S2 normal, no murmur noted ABDOMEN: Soft, nontender, nondistended, normoactive bowel sounds, no guarding EXTREMITIES: 2+ pulses, warm, well-perfused, no edema. NEUROLOGICAL: Normal speech. Sensation intact throughout. RUE muscle strength 5/ 5, LUE muscle strength 4/5. 4/5 strength at right hip and 3/5 strength right knee. 2/5 strength at left hip and knee. PSYCH: appropriate mood and affect SKIN: Warm, dry Active Medications Generic Name Dose Route Start Last Admin Trade Name Freq PRN Reason Stop Dose Admin Citalopram Hydrobromide 20 mg 11/13/19 10:00 11/17/19 11:27 Celexa - PO 20 mg DAILY FLASH Administration Enoxaparin Sodium 40 mg 11/12/19 10:00 11/17/19 11:28 Lovenox - SQ Not Given DAILY FLASH Methadone HCl 40 mg/ Methadone 50 mg 11/14/19 06:00 11/17/19 05:10 HCl 10 mg PO 50 mg DAILY@0600 FLASH Administration Nicotine 7 mg 11/14/19 13:45 11/17/19 11:27 Nicoderm Patch - TD 7 mg DAILY FLASH Administration Non-Formulary Medication 50 mg 11/14/19 22:00 11/17/19 11:28 Riluzole [Riluzole] PO 50 mg BID FLASH Administration ASSESSMENT/PLAN: 54 y/o/m with PMH of ALS (wheelchair bound since 07/13) and depression presenting to ED s/p fall with mild left thigh pain on palpation. Patient admitted for unsafe discharge and need for placement. #Left thigh pain 2/2 mechanical fall 2/2 worsening weakness from progressive ALS - Femur Xray - no sign of fracture or subluxation and no sign of blastic or lytic changes - pain control as needed, can give Tylenol - PT eval - Patient will need placement on discharge as he is unable to ambulate on his own - fall precautions - patient requesting placement in [facility] - Would like to stop taking methadone so that he can have placement at preferred halfway. - Consult placed for addiction medicine. Recs appreciated - By law now all methadone programs can make arrangements with halfway to assist with dispensation of methadone. What this patient can request is that the methadone program request a CSAT permission for release of methadone to the nursing him that will then store and dispense his methadone on a daily basis if he is admitted to a halfway #ALS - Continue Riluzole 50mg BID #Depression - Continue Citalopram - Patient has taken Clonazepam 1mg once daily at home as needed for muscle spasm /anxiety. Will not start at this time but can give as needed. #Prophylaxis - Lovenox #FEN - regular diet #Disposition - D/C pending place to SNF Visit type - Emergency Visit Emergency Visit: Yes ED Registration Date: 11/11/19 Care time: The patient presented to the Emergency Department on the above date and was hospitalized for further evaluation of their emergent condition. - New Patient This patient is new to me today: No - Critical Care Critical Care patient: No ATTENDING PHYSICIAN STATEMENT I saw and evaluated the patient. I reviewed the resident's note and discussed the case with the resident. I agree with the resident's findings and plan as documented. SUBJECTIVE: OBJECTIVE: ASSESSMENT AND PLAN:
--- NOTE | 2019-11-17 17:42 | PN ---
Teaching Attending Note Name of Resident: Winston Sofia ATTENDING PHYSICIAN STATEMENT I saw and evaluated the patient. I reviewed the resident's note and discussed the case with the resident. I agree with the resident's findings and plan as documented with exceptions below. SUBJECTIVE: No new complaints. 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 -Progressive ALS/Ambulatory Dysfunction/Functional paraplegia -Prior substance abuse, on methadone -Depression Plan: trauma w/u neg. PT eval noted, for SNF. Continue Riluzole. Addiction medicine input noted. Patient can request that the methadone program request permission for release of methadone to the nursing him that will then store and dispense his methadone on a daily basis if he is admitted to a [facility], per recs Continue citalopram DVTPPx lovenox. Dispo awaiting SNF placement.
[2019-11-18] MEDS ORDERED: METHADONE HCL 40 MG DISPERSABLE TABLET ONE (06:03)
[2019-11-18] MEDS ORDERED: METHADONE HCL 10 MG TABLET ONE (06:04)
[2019-11-18] MEDS: METHADONE 40 MG, METHADONE 10 MG PO SCH (06:20)
[2019-11-18] MEDS: NICOTINE 7 MG/24 HOURS TOPICAL PATCH TD SCH (09:40)
[2019-11-18] MEDS: ENOXAPARIN NA (PORCINE) 40 MG/0.4 ML DISP.SYRIN SQ SCH (09:41)
[2019-11-18] MEDS: CITALOPRAM HYDROBROMIDE 20 MG TABLET (FP) PO SCH (09:41)
[2019-11-18] MEDS: RILUZOLE 50 MG PO SCH ×2 (09:46→22:33)
--- NOTE | 2019-11-18 10:51 | PN ---
Teaching Attending Note Name of Resident: Winston Sofia ATTENDING PHYSICIAN STATEMENT I saw and evaluated the patient. I reviewed the resident's note and discussed the case with the resident. I agree with the resident's findings and plan as documented with exceptions below. SUBJECTIVE: Patient seen and examined. no new complaints. OBJECTIVE: Vital Signs Period Temp Pulse Resp BP Sys/Cruz Pulse Ox Last 24 Hr 98.0 F-98.7 F 69-85 18-18 105-139/66-71 96 Intake & Output 11/15/19 11/16/19 11/17/19 11/18/19 23:59 23:59 23:59 23:59 Intake Total 200 850 0 0 Output Total 3 1050 1200 400 Balance 197 -200 -1200 -400 General :sitting in bed, no acute distress neck: soft, supple Chest: CTAB, no rales or wheezing Abdomen:Soft Extremities: no edema Home Medications Medication Instructions Recorded Citalopram Hydrobromide 20 mg PO DAILY 11/11/19 [Citalopram HBr] Riluzole 50 mg PO DAILY 11/13/19 Methadone [Dolophine -] 50 mg PO DAILY@0600 tablet MDD 50 11/17/19 mg Nicotine Patch [Nicoderm Patch -] 7 mg TD DAILY #30 patch 11/17/19 ASSESSMENT AND PLAN: 54 year old male with ALS (wheelchair bound since 07/13), 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 -Progressive ALS/Ambulatory Dysfunction/Functional paraplegia -Prior substance abuse, on methadone -Depression Plan: trauma w/u neg. PT eval noted, for SNF. Continue Riluzole. Addiction medicine input noted. Patient can request that the methadone program request permission for release of methadone to the nursing him that will then store and dispense his methadone on a daily basis if he is admitted to a [facility], per recs Continue citalopram DVTPPx lovenox. Dispo awaiting SNF placement.
--- NOTE | 2019-11-18 11:22 | PN ---
Physical Exam: SUBJECTIVE: Patient seen and examined. Planned to discharge to [facility] tomorrow. No acute events overnight. Patient without complaints. OBJECTIVE: Vital Signs Period Temp Pulse Resp BP Sys/Cruz Pulse Ox Last 24 Hr 98.0 F-98.7 F 69-85 18-18 105-139/66-71 96 GENERAL: The patient is awake, alert, and fully oriented, in no acute distress HEAD: Normal with no signs of trauma. EYES: EOMI, no scleral icterus ENT: Moist mucous membranes NECK: Trachea midline, supple. LUNGS: Breath sounds equal, clear to auscultation bilaterally, no wheezes, no crackles, no accessory muscle use. HEART: RRR, S1 S2 normal, no murmur noted ABDOMEN: Soft, nontender, nondistended, normoactive bowel sounds, no guarding EXTREMITIES: 2+ pulses, warm, well-perfused, no edema. NEUROLOGICAL: Normal speech. Sensation intact throughout. RUE muscle strength 5/ 5, LUE muscle strength 4/5. 4/5 strength at right hip and 3/5 strength right knee. 2/5 strength at left hip and knee. PSYCH: appropriate mood and affect SKIN: Warm, dry Active Medications Generic Name Dose Route Start Last Admin Trade Name Freq PRN Reason Stop Dose Admin Citalopram Hydrobromide 20 mg 11/13/19 10:00 11/18/19 09:41 Celexa - PO 20 mg DAILY FLASH Administration Enoxaparin Sodium 40 mg 11/12/19 10:00 11/18/19 09:41 Lovenox - SQ Not Given DAILY FLASH Methadone HCl 40 mg/ Methadone 50 mg 11/14/19 06:00 11/18/19 06:20 HCl 10 mg PO 50 mg DAILY@0600 FLASH Administration Nicotine 7 mg 11/14/19 13:45 11/18/19 09:40 Nicoderm Patch - TD 7 mg DAILY FLASH Administration Non-Formulary Medication 50 mg 11/14/19 22:00 11/18/19 09:46 Riluzole [Riluzole] PO 50 mg BID FLASH Administration ASSESSMENT/PLAN: 54 y/o/m with PMH of ALS (wheelchair bound since 07/13) and depression presenting to ED s/p fall with mild left thigh pain on palpation. Patient admitted for unsafe discharge and need for placement. #Left thigh pain 2/2 mechanical fall 2/2 worsening weakness from progressive ALS - Femur Xray - no sign of fracture or subluxation and no sign of blastic or lytic changes - pain control as needed, can give Tylenol - PT eval - Patient will need placement on discharge as he is unable to ambulate on his own - fall precautions - patient [facility] - Would like to stop taking methadone so that he can have placement at preferred correction. - Consult placed for addiction medicine. Recs appreciated - By law now all methadone programs can make arrangements with correction to assist with dispensation of methadone. What this patient can request is that the methadone program request a CSAT permission for release of methadone to the nursing him that will then store and dispense his methadone on a daily basis if he is admitted to a correction #ALS - Continue Riluzole 50mg BID #Methadone use - decreased dose to 50mg from 60mg during admission. Patient tolerating reduced dose well without complaints or signs of withdrawal #Depression - Continue Citalopram - Patient has taken Clonazepam 1mg once daily at home as needed for muscle spasm /anxiety. Will not start at this time but can give as needed. #Prophylaxis - Lovenox #FEN - regular diet #Disposition - D/C pending place to SNF Visit type - Emergency Visit Emergency Visit: Yes ED Registration Date: 11/11/19 Care time: The patient presented to the Emergency Department on the above date and was hospitalized for further evaluation of their emergent condition. - New Patient This patient is new to me today: No - Critical Care Critical Care patient: No ATTENDING PHYSICIAN STATEMENT I saw and evaluated the patient. I reviewed the resident's note and discussed the case with the resident. I agree with the resident's findings and plan as documented. SUBJECTIVE: OBJECTIVE: ASSESSMENT AND PLAN:
[2019-11-19] MEDS ORDERED: METHADONE HCL 40 MG DISPERSABLE TABLET ONE (05:59)
[2019-11-19] MEDS ORDERED: METHADONE HCL 10 MG TABLET ONE (06:00)
[2019-11-19] MEDS: METHADONE 40 MG, METHADONE 10 MG PO SCH (06:18)
[2019-11-19 08:28] VITALS: BP 112/68; PULSE 78; TEMP 98.3
[2019-11-19] MEDS ORDERED: PT OWN MED DRAWER 7, Y5N ONE ×3 (09:13→10:46)
[2019-11-19] MEDS: NICOTINE 7 MG/24 HOURS TOPICAL PATCH TD SCH (09:31)
[2019-11-19] MEDS: CITALOPRAM HYDROBROMIDE 20 MG TABLET (FP) PO SCH (09:31)
[2019-11-19] MEDS: RILUZOLE 50 MG PO SCH (10:42)
--- NOTE | 2019-11-19 11:18 | DS ---
Physical Exam: SUBJECTIVE: Patient seen and examined. Patient without complaints. Denies chest pain, SOB, abd pain, fever, chills. OBJECTIVE: Vital Signs Period Temp Pulse Resp BP Sys/Cruz Pulse Ox Last 24 Hr 97.9 F-98.6 F 65-78 18-20 109-135/57-69 95-95 PHYSICAL EXAM GENERAL: The patient is awake, alert, and fully oriented, in no acute distress HEAD: Normal with no signs of trauma. EYES: EOMI, no scleral icterus ENT: Moist mucous membranes NECK: Trachea midline, supple. LUNGS: Breath sounds equal, clear to auscultation bilaterally, no wheezes, no crackles, no accessory muscle use. HEART: RRR, S1 S2 normal, no murmur noted ABDOMEN: Soft, nontender, nondistended, normoactive bowel sounds, no guarding EXTREMITIES: 2+ pulses, warm, well-perfused, no edema. NEUROLOGICAL: Normal speech. Sensation intact throughout. CN 2-12 intact. RUE muscle strength 5/5, LUE muscle strength 4/5. 4/5 strength at right hip and 3/5 strength right knee. 2/5 strength at left hip and knee. PSYCH: appropriate mood and affect SKIN: Warm, dry LABS HOSPITAL COURSE: Date of Admission:11/11/19 Date of Discharge: 11/19/19 54 y/o/m with PMH of ALS (wheelchair bound since 07/13) and depression presenting to ED s/p fall with mild left thigh pain on palpation. Patient admitted for unsafe discharge and need for placement. Femur Xray was negative for fracture or lesions. Patient was given Tylenol for pain control. We reached out to multiple nursing homes for placement but most were unwilling to accept the patient as he is on Methadone for previous drug use. Patient stated he would like to stop taking Methadone but it was explained to him that it would be unsafe to abruptly stop his Methadone and it is a long process to taper the medication. Patient was seen by addiction medicine who advised that all methadone programs can make arrangements with jail to assist with dispensation of methadone. Patient's home medications for depression and ALS were continued while in the hospital. Placement for patient was [facility] at [facility]. Patient stable for discharge at this time. Minutes to complete discharge: 36 Discharge Summary Problems reviewed: Yes Reason For Visit: UNABLE TO WALK Current Active Problems Thigh injury (Acute) Unable to ambulate (Acute) Condition: Stable - Instructions Diet, Activity, Other Instructions: You presented to the hospital after a fall due to worsening weakness from your ALS. You had an x-ray of your leg done which did not show any fracture. Your home medications were continued while you were in the hospital. Medication Changes: 1. Your Methadone dose was decreased to 50mg. 2. You were started on a nicotine patch while in the hospital for your cigarette use. Follow up with the following physicians: 1. Please follow up with your primary care provider within one week of discharge. If you do not have a primary care provider you can make an appointment with the [facility], a referral is included in your discharge packet. 2. Please follow up with your methadone clinic for further management of your methadone dosing. Activity and Diet 1. You are being discharged to a nursing facility to continue rehab and help with your ALS. Continue all your other medications as prescribed Please return to the ER if you have any signs or symptoms of chest pain, shortness of breath, uncontrollable fever, chills, nausea, vomiting, numbness, tingling, or weakness in any part of your body, changes in vision, or slurred speech. Please return to the ER if symptoms persist, worsen, or new symptoms arise. Referrals: [facility] [place] [Provider Group] Disposition: ALF FACILITY - Home Medications Comprehensive Discharge Medication List: Ambulatory Orders Citalopram Hydrobromide [Citalopram HBr] 20 mg PO DAILY 11/11/19 Riluzole 50 mg PO DAILY 11/13/19 Methadone [Dolophine -] 50 mg PO DAILY@0600 tablet MDD 50 mg 11/17/19 Nicotine Patch [Nicoderm Patch -] 7 mg TD DAILY #30 patch 11/17/19 This patient is new to me today: No Emergency Visit: Yes ED Registration Date: 11/11/19 Care time: The patient presented to the Emergency Department on the above date and was hospitalized for further evaluation of their emergent condition. Critical Care patient: No - Discharge Referral Referred to [facility] No ATTENDING PHYSICIAN STATEMENT I saw and evaluated the patient. I reviewed the resident's note and discussed the case with the resident. I agree with the resident's findings and plan as documented. SUBJECTIVE: OBJECTIVE: ASSESSMENT AND PLAN:
--- NOTE | 2019-11-19 13:18 | PN ---
Teaching Attending Note Name of Resident: Winston Sofia ATTENDING PHYSICIAN STATEMENT I saw and evaluated the patient. I reviewed the resident's note and discussed the case with the resident. I agree with the resident's findings and plan as documented with exceptions below. SUBJECTIVE: patient seen and examined, no complaints. OBJECTIVE: General :sitting in bed, no acute distress neck: soft, supple Chest: CTAB, no rales or wheezing Abdomen:Soft Extremities: no edema ASSESSMENT AND PLAN: 54 year old male with ALS (wheelchair bound since 07/13), 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 -Progressive ALS/Ambulatory Dysfunction/Functional paraplegia -Prior substance abuse, on methadone -Depression Plan: Trauma w/u neg. PT eval noted, for SNF. Continue Riluzole. Addiction medicine input noted. Patient can request that the methadone program request permission for release of methadone to the nursing him that will then store and dispense his methadone on a daily basis if he is admitted to a senior living, per recs Continue citalopram DVTPPx lovenox. Dispo dc to SNF today. Discussed with patient.
== END 2019-11-19 15:48 | DRG 57 ==
LOC: JER 14:56 → JERFT 14:56 → JERBED 19:41 → J5S 11-12 17:36
PROVIDERS: ADMIT Internal Medicine; ATTEND Hospitalist
DX: G12.21 Amyotrophic lateral sclerosis (principal); F11.20 Opioid dependence, uncomplicated; S79.922A Unspecified injury of left thigh, initial encounter; W18.30XA Fall on same level, unspecified, initial encounter; F32.9 Major depressive disorder, single episode, unspecified; F44.4 Conversion disorder with motor symptom or deficit; R26.2 Difficulty in walking, not elsewhere classified; Z99.3 Dependence on wheelchair; Y92.89 Other specified places as the place of occurrence of the external cause
CPT/HCPCS: 36415; 73552-TC-LT-FY; 80048; 80053; 81003; 82607; 82746; 83735; 84100; 85025; 93005; 93010; 97116-GP; 97162-GP; 99284-25; Q2036

== ENCOUNTER 2019-11-19 18:38 | Inpatient (IN) | payer MEDICARE, OTHER ==
[2019-11-19 18:43] VITALS: BMI 25.1
--- NOTE | 2019-11-19 20:55 | PDOC ---
History of Present Illness - General Stated Complaint: SICK Time Seen by Provider: 11/19/19 19:45 History Source: Patient Exam Limitations: No Limitations Past History - Past Medical History Allergies/Adverse Reactions: Allergies Allergy/AdvReac Type Severity Reaction Status Date / Time No Known Allergies Allergy Verified 11/19/19 18:43 Home Medications: Ambulatory Orders Citalopram Hydrobromide [Citalopram HBr] 20 mg PO DAILY 11/11/19 Riluzole 50 mg PO DAILY 11/13/19 Methadone [Dolophine -] 50 mg PO DAILY@0600 tablet MDD 50 mg 11/17/19 Nicotine Patch [Nicoderm Patch -] 7 mg TD DAILY #30 patch 11/17/19 Anemia: No Asthma: No Cancer: No Cardiac Disorders: No CVA: No COPD: Yes CHF: No Dementia: No Diabetes: No GI Disorders: No Disorders: No HTN: No Hypercholesterolemia: No Liver Disease: No Seizures: No Thyroid Disease: No - Immunization History Immunization Up to Date: Yes - Psycho Social/Smoking Cessation Hx Smoking History: Current every day smoker Number of Cigarettes Smoked Daily: 20 Information on smoking cessation initiated: No 'Breaking Loose' booklet given: 11/12/19 Hx Alcohol Use: Yes (ON OCCASSION/INFREQUENT) Drug/Substance Use Hx: Yes (opioids in past) Substance Use Type: None Hx Substance Use Treatment: Yes (on methadone) *Physical Exam - Vital Signs Last Vital Signs Temp Pulse Resp BP Pulse Ox 98 F 100 H 18 155/77 98 11/19/19 18:40 11/19/19 18:40 11/19/19 18:40 11/19/19 18:40 11/19/19 18:40 - Physical Exam General Appearance: No: Apparent Distress Respiratory/Chest: positive: Lungs Clear, Normal Breath Sounds. negative: Respiratory Distress Cardiovascular: positive: Regular Rhythm, Regular Rate, S1, S2. negative: Murmur Neurologic: positive: Alert Medical Decision Making - Medical Decision Making 54 y/o M hx of ALS (WC bound since 06/2019), depression, substance abuse (on Methadone) was just discharged from hospital today and sent to [facility] rehab around 3 PM. Patient states though that the place is filthy and would prefer to go somewhere else. Mentions he has been finding it difficult to perform ADLs due to his ALS, worsening over the past month, causing falls. He is unable to live with family as they all have stairs in their living places. Patient is currently tapering off of his Methadone and his last dose was today. Denies other complaints No social media intern available currently Hospitalist paged 8 PM Waiting to hear back 11/19/19 20:53 Patient will be admitted to see social media intern tomorrow AM 11/19/19 22:48 Discharge - Discharge Information Problems reviewed: Yes Clinical Impression/Diagnosis: Hospital admission due to social situation Condition: Stable - Admission Yes - Follow up/Referral Referrals: ON STAFF,NOT [Primary Care Provider] - - Patient Discharge Instructions - Post Discharge Activity
[2019-11-20 01:18] LABS: BASO % 1.1 % (0-2.0); EOS % 3.2 % (0-4.5); HEMATOCRIT 37.1 % (35.4-49); HEMOGLOBIN 12.6 GM/dL (11.7-16.9); LYMPH % 25.8 % (8-40); MCH 29.2 pg (25.7-33.7); MCHC 34.1 g/dl (32.0-35.9); MEAN CELL VOLUME 85.6 fl (80-96); MEAN PLT VOLUME 7.9 fl (7.5-11.1); MONO % 8.1 % (3.8-10.2); NEUT % 61.8 % (42.8-82.8); PLATELET COUNT 190 K/MM3 (134-434); RBC 4.34 M/mm3 (4.00-5.60); RDW 13.3 % (11.9-15.9); WHITE BLOOD COUNT 8.4 K/mm3 (4.0-10.0)
[2019-11-20 01:38] LABS: BILIRUBIN,TOTAL 0.4 mg/dL (0.2-1); BLOOD UREA NITROGEN 9.2 mg/dL (7-18); CALCIUM 9.1 mg/dL (8.5-10.1); CREATININE 0.6 mg/dL (0.55-1.3); TOT PROT 7.5 g/dl (6.4-8.2)
--- NOTE | 2019-11-20 05:05 | PN ---
Teaching Attending Note Name of Resident: Willian Whaley ATTENDING PHYSICIAN STATEMENT I saw and evaluated the patient. I reviewed the resident's note and discussed the case with the resident. I agree with the resident's findings and plan as documented. SUBJECTIVE: Patient is a 54 year old man with PMH of ALS (WC bound since 06/2019), Tobacco use, Depression and Substance abuse (on Methadone) was just discharged from hospital today (11/19/19) and sent to [facility] rehab around 3 PM. Patient states though that the place is filthy and would prefer to go somewhere else. Mentions he has been finding it difficult to perform ADLs due to his ALS, worsening over the past month, causing falls. He is unable to live with family as they all have stairs in their living places. Patient is currently tapering off of his Methadone and his last dose was today. Denies any recent fevers, chills, headache, dizziness, nausea, vomiting, diarrhea, constipation, chest pain, shortness of breath, dysuria, frequency, urgency or hematuria. No recent travel or sick contacts. Denies alcohol, tobacco or illicit drug use. OBJECTIVE: Alert Vital Signs Period Temp Pulse Resp BP Sys/Cruz Pulse Ox Last 24 Hr 98 F 100 18 155/77 98 HEENT: No Jaundice, eye redness or discharge, PERRLA, EOMI. Normocephalic, atraumatic. External ears are normal and hearing is grossly intact. No nasal discharge. Neck: Supple, nontender. No palpable adenopathy or thyromegaly. No JVD Chest: Good effort. Clear to auscultation and percussion. Heart: Regular. No S3, rub or murmur Abdomen: Not distended, soft, nontender and no HSM. No rebound or guarding. Normal bowel sounds. Ext: Peripheral pulses intact. No leg edema. Left thigh tenderness. Skin: Warm and dry. No petechiae, rash or ecchymosis. Neuro: Alert. Oriented x3. CN 2-12 grossly intact. Sensation grossly intact in all four extremities; left hemiparesis. Psych: Appropriate mood and affect. Good insight. No suicidal or homicidal ideation. Home Medications Medication Instructions Recorded Citalopram Hydrobromide 20 mg PO DAILY 11/11/19 [Citalopram HBr] Riluzole 50 mg PO DAILY 11/13/19 Methadone [Dolophine -] 50 mg PO DAILY@0600 tablet MDD 50 11/17/19 mg Nicotine Patch [Nicoderm Patch -] 7 mg TD DAILY #30 patch 11/17/19 Laboratory Results - last 24 hr 11/20/19 11/20/19 00:50 00:50 WBC 8.4 RBC 4.34 Hgb 12.6 Hct 37.1 MCV 85.6 MCH 29.2 MCHC 34.1 RDW 13.3 Plt Count 190 MPV 7.9 Absolute Neuts (auto) 5.2 Neutrophils % 61.8 Lymphocytes % 25.8 Monocytes % 8.1 Eosinophils % 3.2 Basophils % 1.1 Nucleated RBC % 0 Sodium 137 Potassium 4.0 Chloride 102 Carbon Dioxide 29 Anion Gap 6 L BUN 9.2 Creatinine 0.6 Est GFR (CKD-EPI)AfAm 132.11 Est GFR (CKD-EPI)NonAf 113.99 Random Glucose 87 Calcium 9.1 Total Bilirubin 0.4 AST 33 ALT 53 Alkaline Phosphatase 84 Total Protein 7.5 Albumin 4.0 ASSESSMENT AND PLAN: 1. Progressive ALS/Inability to ambulate - Debility likely related to ALS progression. EKG from 11/11/19 shows NSR with no significant ST-T wave changes. Will consult cellar worker for placement at another SNF. Consult PT. Will continue comprehensive care for all of patients comorbid conditions. 2. Tobacco Use Counseled on risks associated with tobacco use. We will provide patient all the necessary assistance to facilitate smoking cessation and prescribe Nicotine patch. 3. DVT prophylaxis - Lovenox 40 mg SQ q 24 hours. 4. Advance directives - Full code
--- NOTE | 2019-11-20 05:36 | HP ---
CHIEF COMPLAINT: Pt. rejects SNF PCP: [facility] HISTORY OF PRESENT ILLNESS: Pt. is a 54 y.o. M w/ PMHx. of ALS (wheelchair bound since 07/13) and depression presenting to ED after rejecting admission to SNF. Pt. states that he did not expect a 5 star hotel, that he expected a mediocre facility and this facility fell far short of that. Pt. states that as soon as he walked in he saw and smelt feces and urine on the floor, that the place was "disgusting and messy." Pt. apologizes for the inconvience but that the place is not even satisfactory. Social work was unable to find him an alternate facility in the ED. Pt. denies any acute complaints. ER course was notable for: (1) CBC, BMP (2) (3) PAST SURGICAL HISTORY: none Family HISTORY: non contributory Social History: Smoking: active smoker 1PPD Alcohol:denies Drugs: denies Allergies No Known Allergies Allergy (Verified 11/11/19 15:12) HOME MEDICATIONS: Home Medications Medication Instructions Recorded Citalopram Hydrobromide 20 mg PO DAILY 11/11/19 [Citalopram HBr] Riluzole 50 mg PO DAILY 11/13/19 Methadone [Dolophine -] 50 mg PO DAILY@0600 tablet MDD 50 11/17/19 mg Nicotine Patch [Nicoderm Patch -] 7 mg TD DAILY #30 patch 11/17/19 REVIEW OF SYSTEMS As above PHYSICAL EXAMINATION GENERAL: Awake, alert, and fully oriented, in no acute distress. HEAD: Normal with no signs of trauma. EYES: Pupils equal, round and reactive to light, extraocular movements intact, sclera anicteric, conjunctiva clear. No lid lag. EARS, NOSE, THROAT: oropharynx clear without exudates. Moist mucous membranes. NECK: Normal range of motion, supple without lymphadenopathy, JVD, or masses. LUNGS: Breath sounds equal, clear to auscultation bilaterally. No wheezes, and no crackles. No accessory muscle use. HEART: Regular rate and rhythm, normal S1 and S2 without murmur, rub or gallop. ABDOMEN: Soft, nontender, not distended, normoactive bowel sounds, no guarding, no rebound, no masses. No hepatomegaly or splenomegaly. MUSCULOSKELETAL: Normal range of motion at all joints. No bony deformities with tenderness over the left femur. No CVA tenderness. UPPER EXTREMITIES: 2+ pulses, warm, well-perfused. No cyanosis. No clubbing. No peripheral edema. LOWER EXTREMITIES: 2+ pulses, warm, well-perfused. No calf tenderness. No peripheral edema. NEUROLOGICAL: Cranial nerves II-XII intact without fasiculations. Sensation intact globally. No dysmetria or dysdiadochokinesia. Normal speech. Muscle strength 5/5 on the right side with 3/5 in the left UE and 1-2/5 in the left LE. PSYCHIATRIC: Cooperative. Good eye contact. Appropriate mood and affect. SKIN: Warm, dry, normal turgor, no rashes or lesions noted, normal capillary refill. Vital Signs - 24 hr 11/19/19 18:40 Temperature 98 F Pulse Rate 100 H Respiratory 18 Rate Blood Pressure 155/77 O2 Sat by Pulse 98 Oximetry (%) Laboratory Results - last 24 hr 11/20/19 11/20/19 00:50 00:50 WBC 8.4 RBC 4.34 Hgb 12.6 Hct 37.1 MCV 85.6 MCH 29.2 MCHC 34.1 RDW 13.3 Plt Count 190 MPV 7.9 Absolute Neuts (auto) 5.2 Neutrophils % 61.8 Lymphocytes % 25.8 Monocytes % 8.1 Eosinophils % 3.2 Basophils % 1.1 Nucleated RBC % 0 Sodium 137 Potassium 4.0 Chloride 102 Carbon Dioxide 29 Anion Gap 6 L BUN 9.2 Creatinine 0.6 Est GFR (CKD-EPI)AfAm 132.11 Est GFR (CKD-EPI)NonAf 113.99 Random Glucose 87 Calcium 9.1 Total Bilirubin 0.4 AST 33 ALT 53 Alkaline Phosphatase 84 Total Protein 7.5 Albumin 4.0 ASSESSMENT/PLAN: Pt. is a 54 y.o. M w/ PMHx. of ALS (wheelchair bound since 07/13) and depression presenting to ED after rejecting admission to SNF. #Unsafe Discharge Pt.'s placement is complicated by necessitating Methadone for Hx. of opiate abuse. Pt. will require further discussion with Social work to optimize placement. Will c/w chronic home medications. #FEN no IVF, encourage PO intake monitor electrolytes and replete as needed Regular Diet #DVT Ppx. SCDs Visit type - Emergency Visit Emergency Visit: Yes ED Registration Date: 11/20/19 Care time: The patient presented to the Emergency Department on the above date and was hospitalized for further evaluation of their emergent condition. - New Patient This patient is new to me today: Yes Date on this admission: 11/20/19 - Critical Care Critical Care patient: No ATTENDING PHYSICIAN STATEMENT I saw and evaluated the patient. I reviewed the resident's note and discussed the case with the resident. I agree with the resident's findings and plan as documented. SUBJECTIVE: OBJECTIVE: ASSESSMENT AND PLAN:
[2019-11-20] MEDS ORDERED: METHADONE HCL 10 MG TABLET PO SCH ×2 (06:00→10:56)
[2019-11-20] MEDS ORDERED: METHADONE HCL 10 MG TABLET ONE (06:23)
[2019-11-20] MEDS ORDERED: METHADONE HCL 40 MG DISPERSABLE TABLET ONE (06:24)
[2019-11-20] MEDS: ENOXAPARIN NA (PORCINE) 40 MG/0.4 ML DISP.SYRIN SQ SCH ×2 (11:38→11:57)
[2019-11-20] MEDS: CITALOPRAM HYDROBROMIDE 20 MG TABLET (FP) PO SCH (11:39)
[2019-11-20] MEDS: RILUZOLE PO SCH ×2 (11:40→22:39)
[2019-11-20] MEDS ORDERED: PT OWN MED DRAWER 7, Y5N ONE (13:02)
[2019-11-20] MEDS: NICOTINE 7 MG/24 HOURS TOPICAL PATCH TD SCH (13:05)
--- NOTE | 2019-11-20 13:17 | PN ---
Teaching Attending Note Name of Resident: Winston Sofia ATTENDING PHYSICIAN STATEMENT I saw and evaluated the patient. I reviewed the resident's note and discussed the case with the resident. I agree with the resident's findings and plan as documented with exceptions below. SUBJECTIVE: Patient seen and examined, no new complaints. OBJECTIVE: Vital Signs Period Temp Pulse Resp BP Sys/Cruz Pulse Ox Last 24 Hr 97.8 F-98.7 F 68-100 17-18 123-155/72-85 98-99 Intake & Output 11/17/19 11/18/19 11/19/19 11/20/19 23:59 23:59 23:59 23:59 Weight 180 lb 180 lb 4.8 oz General :sitting in bed, no acute distress neck: soft, supple Chest: CTAB, no rales or wheezing Abdomen:Soft Extremities: no edema Home Medications Medication Instructions Recorded Citalopram Hydrobromide 20 mg PO DAILY 11/11/19 [Citalopram HBr] Riluzole 50 mg PO DAILY 11/13/19 Methadone [Dolophine -] 50 mg PO DAILY@0600 tablet MDD 50 11/17/19 mg Nicotine Patch [Nicoderm Patch -] 7 mg TD DAILY #30 patch 11/17/19 Active Medications Citalopram Hydrobromide (Celexa -) 20 mg PO DAILY [facility] Last Admin: 11/20/19 11:39 Dose: 20 mg Enoxaparin Sodium (Lovenox -) 40 mg SQ DAILY [facility] Last Admin: 11/20/19 11:57 Dose: Not Given Methadone HCl (Dolophine -) 40 mg PO DAILY@0600 FLASH Nicotine (Nicoderm Patch -) 7 mg TD DAILY [facility] Last Admin: 11/20/19 13:05 Dose: 7 mg Ptnt's Own Med( Riluzole [Riluzole] 50 Mg) 50 mg PO BID [facility] Last Admin: 11/20/19 11:40 Dose: 50 mg Laboratory Results - last 24 hr 11/20/19 11/20/19 00:50 00:50 WBC 8.4 RBC 4.34 Hgb 12.6 Hct 37.1 MCV 85.6 MCH 29.2 MCHC 34.1 RDW 13.3 Plt Count 190 MPV 7.9 Absolute Neuts (auto) 5.2 Neutrophils % 61.8 Lymphocytes % 25.8 Monocytes % 8.1 Eosinophils % 3.2 Basophils % 1.1 Nucleated RBC % 0 Sodium 137 Potassium 4.0 Chloride 102 Carbon Dioxide 29 Anion Gap 6 L BUN 9.2 Creatinine 0.6 Est GFR (CKD-EPI)AfAm 132.11 Est GFR (CKD-EPI)NonAf 113.99 Random Glucose 87 Calcium 9.1 Total Bilirubin 0.4 AST 33 ALT 53 Alkaline Phosphatase 84 Total Protein 7.5 Albumin 4.0 ASSESSMENT AND PLAN: 54 year old male with ALS (wheelchair bound since 07/13), 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 -Progressive ALS/Ambulatory Dysfunction/Functional paraplegia -Prior substance abuse, on methadone -Depression Plan: patient requests methadone taper, asking for 40 mg. Detox consult, discussed with Dr. Gore, anticipates patient needs long taper to avoid withdrawal. Continue citalopram/Riluzole extension discussion with case management/social work to address disposition to ALS facility that accepts methadone. DVTPPx lovenox. Dispo plan for dc when safe disposition arranged. discussed with patient.
--- NOTE | 2019-11-20 13:20 | CONSULT ---
Consult Detox [facility] Reason for Current Admission/Consult: PATIENT IS ON METHADONE VIA [facility] AND WORSENING ALS NEEDING [facility] CARE Referred by:: maryellen alvarez - History History of Present Illness: Pt. is a 54 y.o. M w/ PMHx. of ALS (wheelchair bound since 07/13) and depression presenting to ED after rejecting admission to SNF. Pt. states that he did not expect a 5 star hotel, that he expected a mediocre facility and this facility fell far short of that. Pt. states that as soon as he walked in he saw and smelt feces and urine on the floor, that the place was "disgusting and messy." formula room worker will attempt to find another facility that will be more suited for his needs due to his ALS. Patient is a rn long term care methadone patient and while attending [facility] was never abstinent from secondary substances. He was still on a restricted pick pack worker scheduled due to his continued use of cocaine as well as heroin. There was no period of sobriety for his whole attendance in [facility]. - History Source History Provided By: Medical Record Limitations to Obtaining History: Physical Impairment - Alcohol/Substance Use Hx Alcohol Use: Yes (ON OCCASSION/INFREQUENT) Hx Substance Use: Yes (cocaine frequently) Hx Substance Use Treatment: Yes ([facility] patient) - Past Medical History WORKFORCE ANALYST: Yes: Other (ALS with rapid deterioration) - Past Surgical History Past Surgical History: Yes: None - Significant Medical Findings: GENERAL: Awake, alert, and fully oriented, in no acute distress. HEAD: Normal with no signs of trauma. EYES: Pupils equal, round and reactive to light, extraocular movements intact, sclera anicteric, conjunctiva clear. No lid lag. EARS, NOSE, THROAT: oropharynx clear without exudates. Moist mucous membranes. NECK: Normal range of motion, supple without lymphadenopathy, JVD, or masses. LUNGS: Breath sounds equal, clear to auscultation bilaterally. No wheezes, and no crackles. No accessory muscle use. HEART: Regular rate and rhythm, normal S1 and S2 without murmur, rub or gallop. ABDOMEN: Soft, nontender, not distended, normoactive bowel sounds, no guarding, no rebound, no masses. No hepatomegaly or splenomegaly. MUSCULOSKELETAL: Normal range of motion at all joints. No bony deformities with tenderness over the left femur. No CVA tenderness. UPPER EXTREMITIES: 2+ pulses, warm, well-perfused. No cyanosis. No clubbing. No peripheral edema. LOWER EXTREMITIES: 2+ pulses, warm, well-perfused. No calf tenderness. No peripheral edema. NEUROLOGICAL: Cranial nerves II-XII intact without fasiculations. Sensation intact globally. No dysmetria or dysdiadochokinesia. Normal speech. Muscle strength 5/5 on the right side with 3/5 in the left UE and 1-2/5 in the left LE. PSYCHIATRIC: Cooperative. Good eye contact. Appropriate mood and affect. SKIN: Warm, dry, normal turgor, no rashes or lesions noted, normal capillary refill. COWS - Scale Resting Pulse: 0= NE 80 or Below Sweatin= No chills or Flushing Restless Observation: 0= Sits Still Pupil Size: 0= Normal to Room Light Bone or Joint Aches: 0= None Runny Nose/ Eye Tearin= None GI Upset > 30mins: 0= None Tremor Observation: 0= None Yawning Observation: 0= None Anxiety or Irritability: 0= None Goose Flesh Skin: 0=Smooth Skin COWS Score: 0 Assessment Plan - Plan Plan: 1. Opioid Dependence: [facility] patient It would be unrealistic for this patient to detox in the short course of his admission to [facility]. There was no period of sobriety the entire time he was in [facility]. He has proven that detox would not be appropriate course for this patient. In the skilled nursing, he can attempt detox in coordinated care once he is accepted into a nursing facility that would better fit his neurological needs. However, in the meantime, he should be maintained on 50 mg of methadone daily. It is the recommendation that he be maintained until he is accepted into a nursing facility and the methadone can also be beneficial in the pain that he may experience as his muscles begin to atrophy due to eventual progression to paralysis. At some point in time, he may also have to be managed for chronic pain from ALS. Dr. Gore
--- NOTE | 2019-11-20 14:26 | PN ---
Physical Exam: SUBJECTIVE: Patient seen and examined. Patient returned as he was unhappy with the quality of the intermediate he was sent to. States that he would like to continue to taper off from Methadone to open up his options for nursing homes. Requesting that he only receive 40mg of Methadone today. Explained to patient to let staff know if he experiences symptoms of withdrawal including sweats, agitation, anxiety, stomach cramps, N/V, joint pains, flushing. Denies any symptoms at this time. OBJECTIVE: Vital Signs Period Temp Pulse Resp BP Sys/Cruz Pulse Ox Last 24 Hr 97.8 F-98.7 F 68-100 17-18 123-155/72-85 98-99 GENERAL: The patient is awake, alert, and fully oriented, in no acute distress HEAD: Normal with no signs of trauma. EYES: PERRL, EOMI, no scleral icterus ENT: Moist mucous membranes NECK: Trachea midline, supple. LUNGS: Breath sounds equal, clear to auscultation bilaterally, no wheezes, no crackles, no accessory muscle use. HEART: RRR, S1 S2 normal, no murmur noted ABDOMEN: Soft, nontender, nondistended, normoactive bowel sounds, no guarding EXTREMITIES: 2+ pulses, warm, well-perfused, no edema. NEUROLOGICAL: Normal speech. Sensation intact throughout. RUE muscle strength 5/ 5, LUE muscle strength 4/5. 4/5 strength at right hip and 3/5 strength right knee. 2/5 strength at left hip and knee. PSYCH: appropriate mood and affect SKIN: Warm, dry Laboratory Results - last 24 hr 11/20/19 11/20/19 00:50 00:50 WBC 8.4 RBC 4.34 Hgb 12.6 Hct 37.1 MCV 85.6 MCH 29.2 MCHC 34.1 RDW 13.3 Plt Count 190 MPV 7.9 Absolute Neuts (auto) 5.2 Neutrophils % 61.8 Lymphocytes % 25.8 Monocytes % 8.1 Eosinophils % 3.2 Basophils % 1.1 Nucleated RBC % 0 Sodium 137 Potassium 4.0 Chloride 102 Carbon Dioxide 29 Anion Gap 6 L BUN 9.2 Creatinine 0.6 Est GFR (CKD-EPI)AfAm 132.11 Est GFR (CKD-EPI)NonAf 113.99 Random Glucose 87 Calcium 9.1 Total Bilirubin 0.4 AST 33 ALT 53 Alkaline Phosphatase 84 Total Protein 7.5 Albumin 4.0 Active Medications Generic Name Dose Route Start Last Admin Trade Name Rashmi PRN Reason Stop Dose Admin Citalopram Hydrobromide 20 mg 11/20/19 10:00 11/20/19 11:39 Celexa - PO 20 mg DAILY FLASH Administration Enoxaparin Sodium 40 mg 11/20/19 10:00 11/20/19 11:57 Lovenox - SQ Not Given DAILY FLASH Methadone HCl 40 mg 11/20/19 10:56 Dolophine - PO DAILY@0600 FLASH Nicotine 7 mg 11/20/19 10:00 11/20/19 13:05 Nicoderm Patch - TD 7 mg DAILY FLASH Administration Ptnt's Own Med( 50 mg 11/20/19 09:45 11/20/19 11:40 Riluzole [Riluzole] PO 50 mg 50 Mg) BID FLASH Administration ASSESSMENT/PLAN: 54 y/o/m with PMHx of ALS (wheelchair bound since 07/13) and depression presenting to ED after rejecting intermediate he was placed at. Patient returned right after discharge from initial hospital stay because he was unhappy with the quality of the intermediate. #Unsafe Discharge - Patient will need placement on discharge as he is unable to ambulate on his own and has worsening ALS - fall precautions, PT eval - Difficult placement due to history of Methadone use - Consult placed for addiction medicine. Recs appreciated - unrealistic for patient to detox in short course of his admission - no period of sobriety the entire time he was in [facility] #Methadone use - Patient requesting lower dose of Methadone - was initially on 60mg at beginning of previous admission, lowered to 50mg, now requesting only 40mg - Explained to patient to alert staff if he has any symptoms of withdrawal #ALS - Continue Riluzole 50mg BID #Depression - Continue Citalopram 20mg PO daily - Patient has taken Clonazepam 1mg once daily at home as needed for muscle spasm /anxiety. Will not start at this time but can give as needed. #Prophylaxis - Lovenox #FEN - regular diet #Disposition - D/C pending placement to SNF Visit type - Emergency Visit Emergency Visit: Yes ED Registration Date: 11/20/19 Care time: The patient presented to the Emergency Department on the above date and was hospitalized for further evaluation of their emergent condition. - New Patient This patient is new to me today: No - Critical Care Critical Care patient: No ATTENDING PHYSICIAN STATEMENT I saw and evaluated the patient. I reviewed the resident's note and discussed the case with the resident. I agree with the resident's findings and plan as documented. SUBJECTIVE: OBJECTIVE: ASSESSMENT AND PLAN:
[2019-11-21] MEDS: METHADONE HCL 10 MG TABLET PO SCH (08:36)
[2019-11-21] MEDS: CITALOPRAM HYDROBROMIDE 20 MG TABLET (FP) PO SCH (10:58)
[2019-11-21] MEDS: RILUZOLE PO SCH ×2 (10:58→21:20)
[2019-11-21] MEDS: NICOTINE 7 MG/24 HOURS TOPICAL PATCH TD SCH (10:58)
[2019-11-21] MEDS: ENOXAPARIN NA (PORCINE) 40 MG/0.4 ML DISP.SYRIN SQ SCH (10:59)
--- NOTE | 2019-11-21 15:18 | PN ---
Physical Exam: SUBJECTIVE: Patient seen and examined, no complaints. OBJECTIVE: Vital Signs Period Temp Pulse Resp BP Sys/Cruz Pulse Ox Last 24 Hr 98.3 F-98.6 F 64-67 18-20 121-125/59-69 97 Intake & Output 11/18/19 11/19/19 11/20/19 11/21/19 23:59 23:59 23:59 23:59 Intake Total 500 Balance 500 Weight 180 lb 180 lb 4.8 oz General :sitting in bed, no acute distress neck: soft, supple Chest: CTAB, no rales or wheezing Abdomen:Soft Extremities: no edema Active Medications Generic Name Dose Route Start Last Admin Trade Name Freq PRN Reason Stop Dose Admin Citalopram Hydrobromide 20 mg 11/20/19 10:00 11/21/19 10:58 Celexa - PO 20 mg DAILY FLASH Administration Enoxaparin Sodium 40 mg 11/20/19 10:00 11/21/19 10:59 Lovenox - SQ Not Given DAILY FLASH Methadone HCl 50 mg 11/21/19 06:00 11/21/19 08:36 Dolophine - PO 40 mg DAILY@0600 FLASH Administration Nicotine 7 mg 11/20/19 10:00 11/21/19 10:58 Nicoderm Patch - TD 7 mg DAILY FLASH Administration Ptnt's Own Med( 50 mg 11/20/19 09:45 11/21/19 10:58 Riluzole [Riluzole] PO 50 mg 50 Mg) BID FLASH Administration ASSESSMENT/PLAN: 54 year old male with ALS (wheelchair bound since 07/13), 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 -Progressive ALS/Ambulatory Dysfunction/Functional paraplegia -Prior substance abuse, on methadone -Depression Plan: patient requests methadone taper, asking for 40 mg. Discussed 's recs in detail and risk for withdrawal. Will continue 50 mg daily, patient agreable. Detox consult noted. Continue citalopram/Riluzole extension discussion with case management/social work to address disposition to ALS facility that accepts methadone. DVTPPx lovenox. Dispo plan for dc when safe disposition arranged. Discussed with patient and family at bedside in detail, all questions answered. . Visit type - Emergency Visit Emergency Visit: Yes ED Registration Date: 11/20/19 Care time: The patient presented to the Emergency Department on the above date and was hospitalized for further evaluation of their emergent condition. - New Patient This patient is new to me today: No - Critical Care Critical Care patient: No - Discharge Referral Referred to [facility] Med P.C.: No
[2019-11-22] MEDS: METHADONE HCL 10 MG TABLET PO SCH (06:49)
--- NOTE | 2019-11-22 07:52 | PN ---
Teaching Attending Note Name of Resident: Winston Sofia ATTENDING PHYSICIAN STATEMENT I saw and evaluated the patient. I reviewed the resident's note and discussed the case with the resident. I agree with the resident's findings and plan as documented with exceptions below. SUBJECTIVE: patient seen and examined, no new complaints. OBJECTIVE: General :sitting in bed, no acute distress neck: soft, supple Chest: CTAB, no rales or wheezing Abdomen:Soft Extremities: no edema Home Medications Medication Instructions Recorded Citalopram Hydrobromide 20 mg PO DAILY 11/11/19 [Citalopram HBr] Riluzole 50 mg PO DAILY 11/13/19 Methadone [Dolophine -] 50 mg PO DAILY@0600 tablet MDD 50 11/17/19 mg Nicotine Patch [Nicoderm Patch -] 7 mg TD DAILY #30 patch 11/17/19 Active Medications Citalopram Hydrobromide (Celexa -) 20 mg PO DAILY [facility] Last Admin: 11/21/19 10:58 Dose: 20 mg Enoxaparin Sodium (Lovenox -) 40 mg SQ DAILY [facility] Last Admin: 11/21/19 10:59 Dose: Not Given Methadone HCl (Dolophine -) 50 mg PO DAILY@0600 [facility] Last Admin: 11/22/19 06:49 Dose: 40 mg Nicotine (Nicoderm Patch -) 7 mg TD DAILY [facility] Last Admin: 11/21/19 10:58 Dose: 7 mg Ptnt's Own Med( Riluzole [Riluzole] 50 Mg) 50 mg PO BID [facility] Last Admin: 11/21/19 21:20 Dose: 50 mg ASSESSMENT AND PLAN: 54 year old male with ALS (wheelchair bound since 07/13), 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 -Progressive ALS/Ambulatory Dysfunction/Functional paraplegia -Prior substance abuse, on methadone -Depression Plan: patient requests methadone taper, asking for 40 mg. Discussed 's recs in detail and risk for withdrawal. Will continue 50 mg daily, patient agreable. Detox consult noted. Continue citalopram/Riluzole extension discussion with case management/social work to address disposition to ALS facility that accepts methadone. DVTPPx lovenox. Dispo plan for dc when safe disposition arranged. Discussed with patient in detail, all questions answered. .
[2019-11-22] MEDS ORDERED: PT OWN MED DRAWER 7, Y5N ONE ×2 (09:38→10:31)
[2019-11-22] MEDS: CITALOPRAM HYDROBROMIDE 20 MG TABLET (FP) PO SCH (09:43)
[2019-11-22] MEDS: NICOTINE 7 MG/24 HOURS TOPICAL PATCH TD SCH (09:43)
[2019-11-22] MEDS: RILUZOLE PO SCH ×2 (09:47→22:01)
[2019-11-22] MEDS: ENOXAPARIN NA (PORCINE) 40 MG/0.4 ML DISP.SYRIN SQ SCH (09:50)
--- NOTE | 2019-11-22 11:30 | PN ---
Physical Exam: SUBJECTIVE: Patient seen and examined. Explained to patient to continue taking 50mg Methadone as per recommendations from addiction medicine. Refusing Lovenox today as he feels he does not need it, he is moving around in a wheelchair and is not completely non-mobile. OBJECTIVE: Vital Signs Period Temp Pulse Resp BP Sys/Cruz Pulse Ox Last 24 Hr 97.4 F-98.8 F 66-76 18-20 104-121/64-73 97 GENERAL: The patient is awake, alert, and fully oriented, in no acute distress HEAD: Normal with no signs of trauma. EYES: PERRL, EOMI, no scleral icterus ENT: Moist mucous membranes NECK: Trachea midline LUNGS: Breath sounds equal, clear to auscultation bilaterally, no wheezes, no crackles, no accessory muscle use. HEART: RRR, S1 S2 normal, no murmur noted ABDOMEN: Soft, nontender, nondistended, normoactive bowel sounds, no guarding EXTREMITIES: 2+ pulses, warm, well-perfused, no edema. NEUROLOGICAL: Normal speech. Sensation intact throughout. RUE muscle strength 5/ 5, LUE muscle strength 4/5. 4/5 strength at right hip and 3/5 strength right knee. 2/5 strength at left hip and knee. PSYCH: appropriate mood and affect SKIN: Warm, dry Active Medications Generic Name Dose Route Start Last Admin Trade Name Freq PRN Reason Stop Dose Admin Citalopram Hydrobromide 20 mg 11/20/19 10:00 11/22/19 09:43 Celexa - PO 20 mg DAILY FLASH Administration Enoxaparin Sodium 40 mg 11/20/19 10:00 11/22/19 09:50 Lovenox - SQ Not Given DAILY FLASH Methadone HCl 50 mg 11/21/19 06:00 11/22/19 06:49 Dolophine - PO 40 mg DAILY@0600 FLASH Administration Nicotine 7 mg 11/20/19 10:00 11/22/19 09:43 Nicoderm Patch - TD 7 mg DAILY FLASH Administration Ptnt's Own Med( 50 mg 11/20/19 09:45 11/22/19 09:47 Riluzole [Riluzole] PO 50 mg 50 Mg) BID FLASH Administration ASSESSMENT/PLAN: 54 y/o/m with PMHx of ALS (wheelchair bound since 07/13) and depression presented to ED after rejecting assisted he was placed at. Patient returned right after discharge from initial hospital stay because he was unhappy with the quality of the assisted he was place at. #Unsafe Discharge - Patient will need placement on discharge as he is unable to ambulate on his own and has worsening ALS - fall precautions, PT eval - Difficult placement due to history of Methadone use - Consult placed for addiction medicine. Recs appreciated - unrealistic for patient to detox in short course of his admission - no period of sobriety the entire time he was in [facility] #Methadone use - was initially on 60mg at beginning of previous admission, lowered to 50mg. Continue at 50mg - Explained to patient to alert staff if he has any symptoms of withdrawal #ALS - Continue Riluzole 50mg BID #Depression - Continue Citalopram 20mg PO daily - Patient has taken Clonazepam 1mg once daily at home as needed for muscle spasm /anxiety. Will not start at this time but can give as needed. #Prophylaxis - Lovenox #FEN - regular diet #Disposition - D/C pending placement to SNF Visit type - Emergency Visit Emergency Visit: Yes ED Registration Date: 11/20/19 Care time: The patient presented to the Emergency Department on the above date and was hospitalized for further evaluation of their emergent condition. - New Patient This patient is new to me today: No - Critical Care Critical Care patient: No ATTENDING PHYSICIAN STATEMENT I saw and evaluated the patient. I reviewed the resident's note and discussed the case with the resident. I agree with the resident's findings and plan as documented. SUBJECTIVE: OBJECTIVE: ASSESSMENT AND PLAN:
[2019-11-23] MEDS: METHADONE HCL 10 MG TABLET PO SCH (06:31)
[2019-11-23] MEDS: ENOXAPARIN NA (PORCINE) 40 MG/0.4 ML DISP.SYRIN SQ SCH (09:28)
[2019-11-23] MEDS: CITALOPRAM HYDROBROMIDE 20 MG TABLET (FP) PO SCH (09:28)
[2019-11-23] MEDS: NICOTINE 7 MG/24 HOURS TOPICAL PATCH TD SCH (09:28)
[2019-11-23] MEDS: RILUZOLE PO SCH ×2 (09:29→21:45)
--- NOTE | 2019-11-23 13:18 | PN ---
Teaching Attending Note Name of Resident: Winston Sofia ATTENDING PHYSICIAN STATEMENT I saw and evaluated the patient. I reviewed the resident's note and discussed the case with the resident. I agree with the resident's findings and plan as documented with exceptions below. SUBJECTIVE: Patient seen and examined. no complaints. OBJECTIVE: Vital Signs Period Temp Pulse Resp BP Sys/Cruz Pulse Ox Last 24 Hr 97.9 F-98.6 F 68-77 18-20 105-138/69-75 97-97 Intake & Output 11/20/19 11/21/19 11/22/19 11/23/19 23:59 23:59 23:59 23:59 Intake Total 500 500 Output Total 800 1100 280 Balance 500 -300 -1100 -280 Weight 180 lb 4.8 oz General: sitting in bed, no acute distress neck: soft, supple Chest: CTAB, no rales or wheezing Abdomen:Soft, NT Extremities: no edema Active Medications Citalopram Hydrobromide (Celexa -) 20 mg PO DAILY [facility] Last Admin: 11/23/19 09:28 Dose: 20 mg Enoxaparin Sodium (Lovenox -) 40 mg SQ DAILY [facility] Last Admin: 11/23/19 09:28 Dose: 40 mg Methadone HCl (Dolophine -) 50 mg PO DAILY@0600 [facility] Last Admin: 11/23/19 06:31 Dose: 50 mg Nicotine (Nicoderm Patch -) 7 mg TD DAILY [facility] Last Admin: 11/23/19 09:28 Dose: 7 mg Ptnt's Own Med( Riluzole [Riluzole] 50 Mg) 50 mg PO BID [facility] Last Admin: 11/23/19 09:29 Dose: 50 mg ASSESSMENT AND PLAN: 54 year old male with ALS (wheelchair bound since 07/13), 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 -Progressive ALS/Ambulatory Dysfunction/Functional paraplegia -Prior substance abuse, on methadone -Depression Plan: patient requests methadone taper, asking for 40 mg. Discussed 's recs in detail and risk for withdrawal. Will continue 50 mg daily, patient agreable. Detox consult noted. Continue citalopram/Riluzole extension discussion with case management/social work to address disposition to ALS facility that accepts methadone. DVTPPx lovenox. Dispo plan for dc when safe disposition arranged. Discussed with patient in detail, all questions answered. .
--- NOTE | 2019-11-23 18:28 | PN ---
Physical Exam: SUBJECTIVE: Patient seen and examined. No acute events overnight. Awaiting placement in SNF. Denies chest pain, SOB, abd pain, chills, fevers. OBJECTIVE: Vital Signs Period Temp Pulse Resp BP Sys/Cruz Pulse Ox Last 24 Hr 98 F-98.6 F 68-75 18-20 105-138/67-73 97-97 GENERAL: The patient is awake, alert, and fully oriented, in no acute distress HEAD: Normal with no signs of trauma. EYES: PERRL, EOMI, no scleral icterus ENT: Moist mucous membranes NECK: Trachea midline LUNGS: Breath sounds equal, clear to auscultation bilaterally, no wheezes, no crackles, no accessory muscle use. HEART: RRR, S1 S2 normal, no murmur noted ABDOMEN: Soft, nontender, nondistended, normoactive bowel sounds, no guarding EXTREMITIES: 2+ pulses, warm, well-perfused, no edema. NEUROLOGICAL: Normal speech. Sensation intact throughout. RUE muscle strength 5/ 5, LUE muscle strength 4/5. 4/5 strength at right hip and 3/5 strength right knee. 2/5 strength at left hip and knee. PSYCH: appropriate mood and affect SKIN: Warm, dry Active Medications Generic Name Dose Route Start Last Admin Trade Name Freq PRN Reason Stop Dose Admin Citalopram Hydrobromide 20 mg 11/20/19 10:00 11/23/19 09:28 Celexa - PO 20 mg DAILY FLASH Administration Enoxaparin Sodium 40 mg 11/20/19 10:00 11/23/19 09:28 Lovenox - SQ 40 mg DAILY FLASH Administration Methadone HCl 50 mg 11/21/19 06:00 11/23/19 06:31 Dolophine - PO 50 mg DAILY@0600 FLASH Administration Nicotine 7 mg 11/20/19 10:00 11/23/19 09:28 Nicoderm Patch - TD 7 mg DAILY FLASH Administration Ptnt's Own Med( 50 mg 11/20/19 09:45 11/23/19 09:29 Riluzole [Riluzole] PO 50 mg 50 Mg) BID FLASH Administration ASSESSMENT/PLAN: 54 y/o/m with PMHx of ALS (wheelchair bound since 07/13) and depression presented to ED after rejecting prison he was [facility] at. Patient returned right after discharge from initial hospital stay because he was unhappy with the quality of the prison he was place at. #Unsafe Discharge - Patient will need placement on discharge as he is unable to ambulate on his own and has worsening ALS - fall precautions, PT eval - Difficult placement due to history of Methadone use - Consult placed for addiction medicine. Recs appreciated - unrealistic for patient to detox in short course of his admission - no period of sobriety the entire time he was in [facility] #Methadone use - was initially on 60mg at beginning of previous admission, lowered to 50mg. Continue at 50mg - Explained to patient to alert staff if he has any symptoms of withdrawal #ALS - Continue Riluzole 50mg BID #Depression - Continue Citalopram 20mg PO daily - Patient has taken Clonazepam 1mg once daily at home as needed for muscle spasm /anxiety. Will not start at this time but can give as needed. #Prophylaxis - Lovenox #FEN - regular diet #Disposition - D/C pending placement to SNF Visit type - Emergency Visit Emergency Visit: Yes ED Registration Date: 11/20/19 Care time: The patient presented to the Emergency Department on the above date and was hospitalized for further evaluation of their emergent condition. - New Patient This patient is new to me today: No - Critical Care Critical Care patient: No ATTENDING PHYSICIAN STATEMENT I saw and evaluated the patient. I reviewed the resident's note and discussed the case with the resident. I agree with the resident's findings and plan as documented. SUBJECTIVE: OBJECTIVE: ASSESSMENT AND PLAN:
[2019-11-23] MEDS ORDERED: PT OWN MED DRAWER 7, Y5N ONE (23:51)
[2019-11-24] MEDS: METHADONE HCL 10 MG TABLET PO SCH (05:57)
--- NOTE | 2019-11-24 11:09 | PN ---
Physical Exam: SUBJECTIVE: Patient seen and examined. No acute events overnight. Patient without complaints. Awaiting placement. OBJECTIVE: Vital Signs Period Temp Pulse Resp BP Sys/Cruz Pulse Ox Last 24 Hr 98.3 F-98.6 F 70-75 18-18 110-123/66-75 97 GENERAL: The patient is awake, alert, and fully oriented, in no acute distress HEAD: Normal with no signs of trauma. EYES: PERRL, EOMI, no scleral icterus ENT: Moist mucous membranes NECK: Trachea midline LUNGS: Breath sounds equal, clear to auscultation bilaterally, no wheezes, no crackles, no accessory muscle use. HEART: RRR, S1 S2 normal, no murmur noted ABDOMEN: Soft, nontender, nondistended, normoactive bowel sounds, no guarding EXTREMITIES: 2+ pulses, warm, well-perfused, no edema. NEUROLOGICAL: Normal speech. Sensation intact throughout. RUE muscle strength 5/ 5, LUE muscle strength 4/5. 4/5 strength at right hip and 3/5 strength right knee. 2/5 strength at left hip and knee. PSYCH: appropriate mood and affect SKIN: Warm, dry Active Medications Generic Name Dose Route Start Last Admin Trade Name Freq PRN Reason Stop Dose Admin Citalopram Hydrobromide 20 mg 11/20/19 10:00 11/23/19 09:28 Celexa - PO 20 mg DAILY FLASH Administration Enoxaparin Sodium 40 mg 11/20/19 10:00 11/23/19 09:28 Lovenox - SQ 40 mg DAILY FLASH Administration Methadone HCl 50 mg 11/21/19 06:00 11/24/19 05:57 Dolophine - PO 50 mg DAILY@0600 FLASH Administration Nicotine 7 mg 11/20/19 10:00 11/23/19 09:28 Nicoderm Patch - TD 7 mg DAILY FLASH Administration Ptnt's Own Med( 50 mg 11/20/19 09:45 11/23/19 21:45 Riluzole [Riluzole] PO 50 mg 50 Mg) BID FLASH Administration ASSESSMENT/PLAN: 54 y/o/m with PMHx of ALS (wheelchair bound since 07/13) and depression presented to ED after rejecting snf he was placed at. Patient returned right after discharge from initial hospital stay because he was unhappy with the quality of the snf he was place at. #Unsafe Discharge - Patient will need placement on discharge as he is unable to ambulate on his own and has worsening ALS - fall precautions, PT eval - Difficult placement due to history of Methadone use - Consult placed for addiction medicine. Recs appreciated - unrealistic for patient to detox in short course of his admission - no period of sobriety the entire time he was in [facility] #Methadone use - was initially on 60mg at beginning of previous admission, lowered to 50mg. Continue at 50mg - Explained to patient to alert staff if he has any symptoms of withdrawal #ALS - Continue Riluzole 50mg BID #Depression - Continue Citalopram 20mg PO daily - Patient has taken Clonazepam 1mg once daily at home as needed for muscle spasm /anxiety. Will not start at this time but can give as needed. #Prophylaxis - Lovenox #FEN - regular diet #Disposition - D/C pending placement to SNF Visit type - Emergency Visit Emergency Visit: Yes ED Registration Date: 11/20/19 Care time: The patient presented to the Emergency Department on the above date and was hospitalized for further evaluation of their emergent condition. - New Patient This patient is new to me today: No - Critical Care Critical Care patient: No ATTENDING PHYSICIAN STATEMENT I saw and evaluated the patient. I reviewed the resident's note and discussed the case with the resident. I agree with the resident's findings and plan as documented. SUBJECTIVE: OBJECTIVE: ASSESSMENT AND PLAN:
[2019-11-24] MEDS: CITALOPRAM HYDROBROMIDE 20 MG TABLET (FP) PO SCH (11:28)
[2019-11-24] MEDS: NICOTINE 7 MG/24 HOURS TOPICAL PATCH TD SCH (11:29)
[2019-11-24] MEDS: ENOXAPARIN NA (PORCINE) 40 MG/0.4 ML DISP.SYRIN SQ SCH (11:29)
[2019-11-24] MEDS: RILUZOLE PO SCH ×2 (11:29→21:44)
[2019-11-24] MEDS ORDERED: PT OWN MED DRAWER 7, Y5N ONE (11:34)
--- NOTE | 2019-11-24 11:42 | PN ---
Teaching Attending Note Name of Resident: Winston Sofia ATTENDING PHYSICIAN STATEMENT I saw and evaluated the patient. I reviewed the resident's note and discussed the case with the resident. I agree with the resident's findings and plan as documented. SUBJECTIVE: Patient has no complaints. OBJECTIVE: Vital Signs Period Temp Pulse Resp BP Sys/Cruz Pulse Ox Last 24 Hr 98.3 F-98.6 F 70-75 18-18 110-123/66-75 97 HEART: S1S2, RRR LUNGS: Clear ABDOMEN: Soft, non-tender, non-distended, normal BS EXTREMITIES: No edema Current Medications Generic Name Dose Route Start Last Admin Trade Name Freq PRN Reason Stop Dose Admin Citalopram Hydrobromide 20 mg 11/20/19 10:00 11/24/19 11:28 Celexa - PO 20 mg DAILY FLASH Administration Enoxaparin Sodium 40 mg 11/20/19 10:00 11/24/19 11:29 Lovenox - SQ 40 mg DAILY FLASH Administration Methadone HCl 50 mg 11/21/19 06:00 11/24/19 05:57 Dolophine - PO 50 mg DAILY@0600 FLASH Administration Nicotine 7 mg 11/20/19 10:00 11/24/19 11:29 Nicoderm Patch - TD 7 mg DAILY FLASH Administration Ptnt's Own Med( 50 mg 11/20/19 09:45 11/24/19 11:29 Riluzole [Riluzole] PO 50 mg 50 Mg) BID FLASH Administration ASSESSMENT AND PLAN: This is a 54 year old man with a history of ALS, opioid abuse, depression, tobacco use who presented to the ED with left thigh pain after a fall, declining mobility/function. 1. 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 Opioid dependence - Continue Methadone 3. Nicotine dependence - Continue nicotine patch 4. Depression - Continue Celexa 5. Disposition - Plan for discharge to SNF
[2019-11-25] MEDS: METHADONE HCL 10 MG TABLET PO SCH (06:01)
[2019-11-25] MEDS ORDERED: PT OWN MED DRAWER 7, Y5N ONE ×3 (07:42→10:10)
[2019-11-25] MEDS: NICOTINE 7 MG/24 HOURS TOPICAL PATCH TD SCH (09:59)
[2019-11-25] MEDS: ENOXAPARIN NA (PORCINE) 40 MG/0.4 ML DISP.SYRIN SQ SCH (09:59)
[2019-11-25] MEDS: CITALOPRAM HYDROBROMIDE 20 MG TABLET (FP) PO SCH (09:59)
[2019-11-25] MEDS: RILUZOLE PO SCH ×2 (10:02→21:36)
--- NOTE | 2019-11-25 16:16 | PN ---
Physical Exam: SUBJECTIVE: Patient seen and examined. He has no complaints. OBJECTIVE: Vital Signs Period Temp Pulse Resp BP Sys/Cruz Pulse Ox Last 24 Hr 98.2 F-98.5 F 69-77 18-20 110-136/58-74 95 GENERAL: The patient is awake, alert, and fully oriented, in no acute distress. LUNGS: Breath sounds equal, clear to auscultation bilaterally, no wheezes, no crackles, no accessory muscle use. HEART: Regular rate and rhythm, S1, S2 without murmur, rub or gallop. ABDOMEN: Soft, nontender, nondistended, normoactive bowel sounds, no guarding, no rebound, no hepatosplenomegaly, no masses. EXTREMITIES: 2+ pulses, warm, well-perfused, no edema. Active Medications Generic Name Dose Route Start Last Admin Trade Name Freq PRN Reason Stop Dose Admin Citalopram Hydrobromide 20 mg 11/20/19 10:00 11/25/19 09:59 Celexa - PO 20 mg DAILY FLASH Administration Enoxaparin Sodium 40 mg 11/20/19 10:00 11/25/19 09:59 Lovenox - SQ 40 mg DAILY FLASH Administration Methadone HCl 50 mg 11/21/19 06:00 11/25/19 06:01 Dolophine - PO 50 mg DAILY@0600 FLASH Administration Nicotine 7 mg 11/20/19 10:00 11/25/19 09:59 Nicoderm Patch - TD 7 mg DAILY FLASH Administration Ptnt's Own Med( 50 mg 11/20/19 09:45 11/25/19 10:02 Riluzole [Riluzole] PO 50 mg 50 Mg) BID FLASH Administration ASSESSMENT/PLAN: This is a 54 year old man with a history of ALS, opioid abuse, depression, tobacco use who presented to the ED with left thigh pain after a fall, declining mobility/function. 1. 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 Opioid dependence - Continue Methadone 3. Nicotine dependence - Continue nicotine patch 4. Depression - Continue Celexa 5. Disposition - Plan for discharge to [place] tomorrow Visit type - Emergency Visit Emergency Visit: Yes ED Registration Date: 11/20/19 Care time: The patient presented to the Emergency Department on the above date and was hospitalized for further evaluation of their emergent condition. - New Patient This patient is new to me today: No - Critical Care Critical Care patient: No - Discharge Referral Referred to [facility] No
[2019-11-26] MEDS: METHADONE HCL 10 MG TABLET PO SCH (05:45)
[2019-11-26] MEDS ORDERED: PT OWN MED DRAWER 7, Y5N ONE (09:47)
[2019-11-26] MEDS: NICOTINE 7 MG/24 HOURS TOPICAL PATCH TD SCH (09:53)
[2019-11-26] MEDS: CITALOPRAM HYDROBROMIDE 20 MG TABLET (FP) PO SCH (09:53)
[2019-11-26] MEDS: ENOXAPARIN NA (PORCINE) 40 MG/0.4 ML DISP.SYRIN SQ SCH (09:53)
[2019-11-26] MEDS: RILUZOLE PO SCH (09:59)
--- NOTE | 2019-11-26 10:03 | DS ---
Physical Exam: SUBJECTIVE: Patient seen and examined. No acute events overnight. Denies chest pain, SOB, abd pain, chills, palpitations, calf pain. OBJECTIVE: Vital Signs Period Temp Pulse Resp BP Sys/Cruz Pulse Ox Last 24 Hr 97.8 F-98.5 F 64-69 20-20 108-136/66-78 97-97 PHYSICAL EXAM GENERAL: The patient is awake, alert, and fully oriented, in no acute distress HEAD: Normal with no signs of trauma. EYES: PERRL, EOMI, no scleral icterus ENT: Moist mucous membranes NECK: Trachea midline LUNGS: Breath sounds equal, clear to auscultation bilaterally, no wheezes, no crackles, no accessory muscle use. HEART: RRR, S1 S2 normal, no murmur noted ABDOMEN: Soft, nontender, nondistended, normoactive bowel sounds, no guarding EXTREMITIES: 2+ pulses, warm, well-perfused, no edema. trace edema of right foot without erythema or pain NEUROLOGICAL: Normal speech. Sensation intact throughout. RUE muscle strength 5/ 5, LUE muscle strength 4/5. 4/5 strength at right hip and 3/5 strength right knee. 2/5 strength at left hip and knee. PSYCH: appropriate mood and affect SKIN: Warm, dry LABS HOSPITAL COURSE: Date of Admission:11/20/19 Date of Discharge: 11/26/19 54 y/o/m with PMH of ALS (wheelchair bound since 07/13) and depression who initially presented to the ED s/p fall with mild left thigh pain on palpation. Patient admitted for unsafe discharge and need for placement. Femur Xray was negative for fracture or lesions. Patient was given Tylenol for pain control. We reached out to multiple nursing homes for placement but most were unwilling to accept the patient as he is on Methadone for previous drug use. Patient stated he would like to stop taking Methadone but it was explained to him that it would be unsafe to abruptly stop his Methadone and it is a long process to taper the medication. Patient was seen by addiction medicine who advised that all methadone programs can make arrangements with correction to assist with dispensation of methadone. Patient's home medications for depression and ALS were continued while in the hospital. Placement for patient was found at [facility] however patient was unhappy with the conditions at this correction and returned to the hospital on the same day. Social work continued to work with the patient during this readmission and found placement at [facility]. Patient stable for discharge at this time. Minutes to complete discharge: 36 Discharge Summary Problems reviewed: Yes Reason For Visit: HOSPITAL ADMISSION DU TO SOCIAL SITUATION Current Active Problems Hospital admission due to social situation (Acute) Condition: Stable - Instructions Diet, Activity, Other Instructions: You initially presented to the hospital after a fall due to worsening weakness from your ALS. You had an x-ray of your leg done which did not show any fracture. Your home medications were continued while you were in the hospital. You were discharged to a correction facility but returned because you did not feel that it was a satisfactory environment. You are now being discharged to [facility] for further care. Medication Changes: No changes were made in your medications. Follow up with the following physicians: 1. Please follow up with your primary care provider within one week of discharge. If you do not have a primary care provider you can make an appointment with the [facility], a referral is included in your discharge packet. 2. Please follow up with your methadone clinic for further management of your methadone dosing. Activity and Diet 1. You are being discharged to a care home facility for continuing care and for rehab to help strengthen your muscles. Continue all your other medications as prescribed Please return to the ER if you have any signs or symptoms of chest pain, shortness of breath, uncontrollable fever, chills, nausea, vomiting, numbness, tingling, or weakness in any part of your body, changes in vision, or slurred speech. Please return to the ER if symptoms persist, worsen, or new symptoms arise. Referrals: ON STAFF,NOT [Primary Care Provider] - [facility] [place] [facility] [place] [Provider Group] Disposition: [facility] - Home Medications Comprehensive Discharge Medication List: Ambulatory Orders Citalopram Hydrobromide [Citalopram HBr] 20 mg PO DAILY 11/11/19 Riluzole 50 mg PO DAILY 11/13/19 Methadone [Dolophine -] 50 mg PO DAILY@0600 tablet MDD 50 mg 11/17/19 Nicotine Patch [Nicoderm Patch -] 7 mg TD DAILY #30 patch 11/17/19 This patient is new to me today: No Emergency Visit: Yes ED Registration Date: 11/20/19 Care time: The patient presented to the Emergency Department on the above date and was hospitalized for further evaluation of their emergent condition. Critical Care patient: No - Discharge Referral Referred to [facility] No ATTENDING PHYSICIAN STATEMENT I saw and evaluated the patient. I reviewed the resident's note and discussed the case with the resident. I agree with the resident's findings and plan as documented. SUBJECTIVE: OBJECTIVE: ASSESSMENT AND PLAN:
[2019-11-26 11:05] VITALS: BP 114/78; PULSE 78; TEMP 98
--- NOTE | 2019-11-26 16:05 | PN ---
Teaching Attending Note Name of Resident: Winston Sofia ATTENDING PHYSICIAN STATEMENT I saw and evaluated the patient. I reviewed the resident's note and discussed the case with the resident. I agree with the resident's findings and plan as documented. SUBJECTIVE: Feels well, no complaints. OBJECTIVE: Afebrile, Hemodynamically Stable. Last Vital Signs Temp Pulse Resp BP Pulse Ox 98 F 78 20 114/78 100 11/26/19 11:04 11/26/19 11:04 11/26/19 11:04 11/26/19 11:04 11/26/19 10:47 GENERAL: AAO x 3. Comfortable. LUNGS: clear to auscultation. HEART: S1, S2, RRR ABDOMEN: Soft, non-tender. Bowel Sounds normal. EXTREMITIES: mild edema, decreased power. Discharge Medications Medication Instructions Recorded Citalopram Hydrobromide 20 mg PO DAILY 11/11/19 [Citalopram HBr] Riluzole 50 mg PO DAILY 11/13/19 Methadone [Dolophine -] 50 mg PO DAILY@0600 tablet MDD 50 11/17/19 mg Nicotine Patch [Nicoderm Patch -] 7 mg TD DAILY #30 patch 11/17/19 ASSESSMENT/PLAN: 54 year old male with a history of ALS, opioid abuse, depression, tobacco use who presented to the ED with left thigh pain after a fall, declining mobility/ function. 1. 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 for transfer to SNF. 2. Opioid dependence - Continue Methadone 3. Nicotine dependence - Continue nicotine patch 4. Depression - Continue Celexa 5. Disposition - Scheduled for discharge to [place].
== END 2019-11-26 12:54 | DRG 57 ==
LOC: JER 18:38 → JERBED 22:49 → OBSVTOIN 11-20 05:34 → J5S 11-20 07:50
PROVIDERS: ADMIT Internal Medicine
DX: G12.21 Amyotrophic lateral sclerosis (principal); F11.20 Opioid dependence, uncomplicated; F44.4 Conversion disorder with motor symptom or deficit; F32.9 Major depressive disorder, single episode, unspecified; F17.210 Nicotine dependence, cigarettes, uncomplicated; Z99.3 Dependence on wheelchair
CPT/HCPCS: 36415; 80053; 85025; 97116-GP; 97161-GP; 99283-25; G0378